=== PATIENT | female | born 1950 | race Caucasian/White ===

== ENCOUNTER 2016-03-03 09:51 | Inpatient (IN) | payer BC ==
[~2016-03-03] VITALS: Ht 167.6 cm; Wt 99.8 kg
[2016-03-03] MEDS ORDERED: LACTATED RINGERS 1,000 ML IV ONE (10:33)
[2016-03-03 10:42] LABS: BASOPHILS % (AUTO) 0 % (0-10); EOSINOPHILS % (AUTO) 0 % (0-10); LYMPHOCYTES # (AUTO) 1.4 X 10^3 (1.0-4.0); LYMPHOCYTES % (AUTO) 7 % (12-44); MEAN CORPUSCULAR HEMOGLOBIN 32 PG (25-34); MEAN CORPUSCULAR HGB CONC 35 G/DL (32-36); MEAN CORPUSCULAR VOLUME 92 FL (80-99); MEAN PLATELET VOLUME 9.7 FL (7.4-10.4); MONOCYTES # (AUTO) 3.8 X 10^3 (0.0-1.0); MONOCYTES % (AUTO) 19 % (0-12); NEUTROPHILS # (AUTO) 14.8 X 10^3 (1.8-7.8); NEUTROPHILS % (AUTO) 74 % (42-75); PLATELET COUNT 423 10^3/uL (130-400); RED BLOOD COUNT 4.56 10^6/uL (4.35-5.85); RED CELL DISTRIBUTION WIDTH 12.9 % (10.0-14.5); WHITE BLOOD COUNT 19.9 10^3/uL (4.3-11.0)
[2016-03-03] MEDS ORDERED: POTA99TA21 PO (10:42)
[2016-03-03] MEDS ORDERED: LISI-552 PO (10:42)
[2016-03-03] MEDS ORDERED: CIPR500T4 PO (10:42)
[2016-03-03] MEDS ORDERED: KRIL1CAP19 PO (10:42)
[2016-03-03] MEDS ORDERED: HYDR25TA4 PO (10:42)
[2016-03-03] MEDS ORDERED: ACETAMINOPHEN 500 MG TAB (TYLENOL) PO ONE (10:45)
[2016-03-03 10:51] LABS: BILIRUBIN,URINE NEGATIVE (NEGATIVE); KETONES,URINE NEGATIVE (NEGATIVE); LEUKOCYTE ESTERASE ,URINE 3+ (NEGATIVE); NITRITE,URINE POSITIVE (NEGATIVE); PH,URINE 6 (5-9); PROTEIN,URINE 3+ (NEGATIVE); UROBILINOGEN,URINE NORMAL (NORMAL)
[2016-03-03 11:05] LABS: ALBUMIN 4.4 G/DL (3.2-4.5); BILIRUBIN,TOTAL 0.4 MG/DL (0.1-1.0); CALCIUM 10.2 MG/DL (8.5-10.1); CREATININE SERUM 0.97 MG/DL (0.60-1.30); POTASSIUM 3.1 MMOL/L (3.6-5.0); TOTAL PROTEIN 8.3 G/DL (6.4-8.2)
[2016-03-03 11:09] LABS: WBC,URINE TNTC /HPF
--- NOTE | 2016-03-03 11:09 | ED General ---
General Chief Complaint: -Female Stated Complaint: JOINT PAIN/LOSS APPETITE/LETHARGIC Nursing Triage Note: PT CO OF UTI SX, FATIGUE, LOW GRADE FEVER, POOR APPETITE Nursing Sepsis Screen: Possible Sepsis Risk Source of Information: Patient History of Present Illness Time Seen by Provider: 10:34 Initial Comments MULTIPLE COMPLAINTS HAS HAD UTI SYMPTOMS SINCE 02/20/16--BURNING, URGENCY, FREQUENCY, BILATERAL FLANK PAIN HAS FELT BAD X 1 WEEK HAS HAD BODY ACHES, LEFT SIDED HEADACHE C/O DECREASED APPETITE, AND NO ENERGY HAS HAD SUBJECTIVE FEVER/SWEATS/CHILLS AT NIGHT FOR THE LAST FEW NIGHTS HAD NAUSEA AND VOMITING A COUPLE OF TIMES ON Friday02/26/16 NO ABDOMINAL PAIN SAW DR. FAIRCHILD ON FRIDAY FOR REGULAR SCHEDULED APPOINTMENT AND WAS TREATED WITH CIPRO FOR UTI STATES SHE FELT A LITTLE BIT BETTER AFTER STARTING ANTIBIOTICS, THEN STARTED FEELING WORSE THE LAST FEW DAYS HAS HISTORY OF CHRONIC UTI'S--WAS DOING BETTER ON MAINTENANCE REGIMEN PCP: DR. FAIRCHILD UROLOGY: DR. NOYOLA Allergies and Home Medications Allergies Coded Allergies: No Known Drug Allergies (Unverified , 05/28/10) Home Medications Ciprofloxacin HCl 500 Mg Tablet 500 MG PO BID (Reported) Hydrochlorothiazide 25 Mg Tablet 25 MG PO DAILY (Reported) Krill/Om-3/Dha/Epa/Phospho/Ast 1 Each Capsule 1 EACH PO DAILY (Reported) Lisinopril 20 Mg Tablet 20 MG PO DAILY (Reported) Potassium Gluconate 99 Mg Tablet 99 MG PO DAILY (Reported) Constitutional: no symptoms reported chills diaphoresis fever malaise weakness EENTM: no symptoms reported Respiratory: no symptoms reported Cardiovascular: no symptoms reported Gastrointestinal: see HPINo abdominal pain, diarrhea loss of appetite nausea vomiting Genitourinary: see HPI dysuria frequency pain Musculoskeletal: see HPI back pain Skin: no symptoms reported Psychiatric/Neurological: No Symptoms Reported HeadacheDenies Numbness, Denies Paresthesia, Denies Seizure, Denies Tremors, Denies Weakness Hematologic/Lymphatic: No Symptoms Reported Immunological/Allergic: no symptoms reported Past Yoyfrvr-Ajkoad-Pxoafm Hx Patient Social History Alcohol Use: Occasionally Uses Recreational Drug Use: No Smoking Status: Former Smoker (1 PPD--QUIT 10 YEARS AGO) Type Used: Cigarettes Recent Foreign Travel: No Contact w/Someone Who Travel: No Recent Infectious Disease Expo: No Recent Hopitalizations: No Physical Abuse Screen: No Sexual Abuse: No Seasonal Allergies Seasonal Allergies: No Surgeries HX Surgeries: Yes (BILATERAL CATARACTS) Surgeries: Appendectomy, Eye Surgery, Tubal Ligation Respiratory Hx Respiratory Disorders: No Cardiovascular Hx Cardiac Disorders: Yes Cardiac Disorders: Hypertension Neurological Hx Neurological Disorders: No Genitourinary Hx Genitourinary Disorders: Yes (FREQUENT UTI) Genitourinary Disorders: UTI-Chronic Gastrointestinal Hx Gastrointestinal Disorders: No Musculoskeletal Hx Musculoskeletal Disorders: Yes (CHRONIC GENERALIZED JOINT PAIN ) Musculoskeletal Disorders: Arthritis HEENT HX ENT Disorders: Yes HEENT Disorders: Cataract Cancer Hx Cancer: No Psychosocial Hx Psychiatric Problems: Yes Behavioral Health Disorders: Anxiety Integumentary HX Skin/Integumentary Disorder: No Blood Transfusions Hx Blood Disorders: No Physical Exam Vital Signs Vital Sign - Last 12Hours 03/03/16 10:35 Temp 100.5 Pulse 105 Resp 18 B/P 152/84 Pulse Ox 97 Capillary Refill : Less Than 3 Seconds General Appearance: No Apparent Distress WD/WN Other (TALKS NON-STOP AT LENGTH ) HEENT: PERRL/EOMI Normal ENT Inspection Neck: Full Range of Motion Normal Inspection Non Tender SuppleNo Lymphadenopathy (L), No Lymphadenopathy (R) Respiratory: Normal Breath Sounds No Accessory Muscle Use No Respiratory Distress Cardiovascular: Regular Rate, Rhythm No Edema No JVD No Murmur Normal Peripheral Pulses Gastrointestinal: Normal Bowel Sounds No Organomegaly No Pulsatile Mass Non Tender Soft Back: Normal Inspection No CVA Tenderness No Vertebral Tenderness Extremity: Normal Capillary Refill Normal Inspection Normal Range of Motion Non Tender No Calf Tenderness No Pedal Edema Neurologic/Psychiatric: Alert Oriented x3 No Motor/Sensory Deficits Normal Mood/Affect night cleaner II-XII Norm as Tested Skin: Normal Color Warm/Dry Progress/Results/Core Measures Results/Orders Lab Results Laboratory Tests Test 03/03/16 10:35 03/03/16 10:40 Range/Units Alanine Aminotransferase (ALT/SGPT) 28 0-55 U/L Albumin 4.4 3.2-4.5 G/DL Alkaline Phosphatase 115 40-136 U/L Amylase Level 85 25-125 U/L Anion Gap 18 H 5-14 MMOL/L Aspartate Amino Transf (AST/SGOT) 31 5-34 U/L BUN/Creatinine Ratio 11 Band Neutrophils 1 % Basophils # (Auto) 0.0 0.0-0.1 10^3/uL Basophils % (Manual) 0 % Basophils (%) (Auto) 0 0-10 % Blood Morphology Comment NORMAL Blood Urea Nitrogen 11 7-18 MG/DL Calcium Level 10.2 H 8.5-10.1 MG/DL Carbon Dioxide Level 21 21-32 MMOL/L Chloride Level 96 L 98-107 MMOL/L Creatinine 0.97 0.60-1.30 MG/DL Eosinophils # (Auto) 0.0 0.0-0.3 10^3/uL Eosinophils % (Manual) 0 % Eosinophils (%) (Auto) 0 0-10 % Estimat Glomerular Filtration Rate 58 Glucose Level 112 H 70-105 MG/DL Hematocrit 42 35-52 % Hemoglobin 14.7 11.5-16.0 G/DL Lipase 66 8-78 U/L Lymphocytes # (Auto) 1.4 1.0-4.0 X 10^3 Lymphocytes % (Manual) 12 % Lymphocytes (%) (Auto) 7 L 12-44 % Mean Corpuscular Hemoglobin 32 25-34 PG Mean Corpuscular Hemoglobin Concent 35 32-36 G/DL Mean Corpuscular Volume 92 80-99 FL Mean Platelet Volume 9.7 7.4-10.4 FL Monocytes # (Auto) 3.8 H 0.0-1.0 X 10^3 Monocytes % (Manual) 15 % Monocytes (%) (Auto) 19 H 0-12 % Neutrophils # (Auto) 14.8 H 1.8-7.8 X 10^3 Neutrophils % (Manual) 72 % Neutrophils (%) (Auto) 74 42-75 % Platelet Count 423 H 130-400 10^3/uL Potassium Level 3.1 L 3.6-5.0 MMOL/L Red Blood Count 4.56 4.35-5.85 10^6/uL Red Cell Distribution Width 12.9 10.0-14.5 % Sodium Level 135 135-145 MMOL/L Total Bilirubin 0.4 0.1-1.0 MG/DL Total Protein 8.3 H 6.4-8.2 G/DL Urine Bacteria LARGE H /HPF Urine Bilirubin NEGATIVE NEGATIVE Urine Casts NONE /LPF Urine Clarity VERY CLOUDY H Urine Color YELLOW Urine Crystals NONE /LPF Urine Culture Indicated YES Urine Glucose (UA) NEGATIVE NEGATIVE Urine Ketones NEGATIVE NEGATIVE Urine Leukocyte Esterase 3+ H NEGATIVE Urine Mucus NEGATIVE /LPF Urine Nitrite POSITIVE H NEGATIVE Urine Protein 3+ H NEGATIVE Urine RBC 5-10 H /HPF Urine RBC (Auto) 3+ H NEGATIVE Urine Specific [place] 1.010 L 1.016-1.022 Urine Urobilinogen NORMAL NORMAL MG/DL Urine WBC TNTC H /HPF Urine pH 6 5-9 White Blood Count 19.9 H 4.3-11.0 10^3/uL Lactic Acid Level 1.2 0.5-2.0 MMOL/L My Orders Orders-BRUNA QUIÑONES K DO Saline Lock/Iv-Start (03/03/16 10:33) Amylase (03/03/16 10:33) Cbc With Automated Diff (03/03/16 10:33) Comprehensive Metabolic Panel (03/03/16 10:33) Lactic Acid Analyzer (03/03/16 10:33) Lipase (03/03/16 10:33) Ua Culture If Indicated (03/03/16 10:33) Blood Culture (03/03/16 10:33) Saline Lock/Iv-Start (03/03/16 10:33) Lactated Ringers (Lr 1000 Ml Iv Solution (03/03/16 10:33) Acetaminophen Tablet (Tylenol Tablet) (03/03/16 10:45) Manual Differential (03/03/16 10:35) Urine Culture (03/03/16 10:35) Cefepime Injection (Maxipime Injection) (03/03/16 11:30) Medications Given in ED Current Medications Medications Dose Ordered Sig/Victoriano Route Start Time Stop Time Status Last Admin Dose Admin Acetaminophen 1,000 mg ONCE ONCE PO 03/03/16 10:45 03/03/16 10:46 DC 03/03/16 10:53 1,000 MG Lactated Ringer's 1,000 ml @ 0 mls/hr Q0M ONCE IV 03/03/16 10:33 03/03/16 10:35 DC 03/03/16 10:53 1,000 MLS/HR Vital Signs/I&O Vital Sign - Last 12Hours 03/03/16 10:35 Temp 100.5 Pulse 105 Resp 18 B/P 152/84 Pulse Ox 97 Blood Pressure Mean: 106 Departure Communication Progress Notes 1110--SPOKE WITH DR. LIZ, FR[employer] FOOD MANAGER FOR DR. FAIRCHILD. ACCEPTS PT FOR ADMIT. ORDERS NOTED FOR MAXIPIME Impression Impression: Primary Impression: Sepsis secondary to UTI Disposition: 09 ADMITTED INPATIENT Condition: Stable Decision to Admit Reason: Admit from ER (General) Decision to Admit/Date: Mar 03, 2016 Time/Decision to Admit Time: 11:10 Departure-Patient Inst. Referrals: HARPER FAIRHCILD MD (PCP/Family) Primary Care Physician BRUNA QUIÑONES DO Mar 03, 2016 11:09
[2016-03-03 11:15] LABS: BAND NEUTROPHILS 1 %; BASOPHILS % (MANUAL) 0 %; EOSINOPHILS % (MANUAL) 0 %; LYMPHOCYTES % (MANUAL) 12 %; NEUTROPHILS % (MANUAL) 72 %
[2016-03-03] MEDS ORDERED: CEFEPIME INJECTION 2,000 MG in NORMAL SALINE (BAXTER MINI) 50 ML IV ONE (11:30)
[2016-03-03] MEDS ORDERED: CATHETER FLUSH 10 ML SYR IV PRN (13:00)
[2016-03-03] MEDS: D5 1/2 NS 1000 ML IV SOLUTION 1,000 ML IV SCH ×2 (13:38→21:29)
[2016-03-03] MEDS: ACETAMINOPHEN 500 MG TAB (TYLENOL) PO PRN ×2 (13:40→19:30)
[2016-03-03 16:00] VITALS: BP 161/74
[2016-03-03] MEDS: CEFEPIME 2 GM/NS 50 ML IVPB IV SCH ×2 (19:29)
[2016-03-03 19:38] VITALS: BP 171/75
[2016-03-03] MEDS: IBUPROFEN 600 MG (MOTRIN) TAB PO PRN (22:25)
[2016-03-03 22:30] VITALS: BP 146/68
[2016-03-04 03:43] VITALS: BP 134/76
[2016-03-04] MEDS: D5 1/2 NS 1000 ML IV SOLUTION 1,000 ML IV SCH ×4 (04:51→21:46)
[2016-03-04 07:54] LABS: BASOPHILS % (AUTO) 0 % (0-10); EOSINOPHILS % (AUTO) 0 % (0-10); LYMPHOCYTES # (AUTO) 1.1 X 10^3 (1.0-4.0); LYMPHOCYTES % (AUTO) 4 % (12-44); MEAN CORPUSCULAR HEMOGLOBIN 33 PG (25-34); MEAN CORPUSCULAR HGB CONC 35 G/DL (32-36); MEAN CORPUSCULAR VOLUME 93 FL (80-99); MEAN PLATELET VOLUME 10.1 FL (7.4-10.4); MONOCYTES # (AUTO) 3.6 X 10^3 (0.0-1.0); MONOCYTES % (AUTO) 15 % (0-12); NEUTROPHILS # (AUTO) 20.2 X 10^3 (1.8-7.8); NEUTROPHILS % (AUTO) 81 % (42-75); PLATELET COUNT 386 10^3/uL (130-400); RED BLOOD COUNT 4.19 10^6/uL (4.35-5.85); RED CELL DISTRIBUTION WIDTH 12.9 % (10.0-14.5); WHITE BLOOD COUNT 24.8 10^3/uL (4.3-11.0)
--- NOTE | 2016-03-04 08:10 | History & Physicial ---
History of Present Illness History of Present Illness Reason for visit/HPI 65-year-old female presents to the emergency department on March 03, 2016 with history of burning and frequency of urination. She does also admit that her flank area bilaterally has been bothering her. She was seen in the office approximately one week ago and started on Cipro for urinary tract infection. At that time patient did not have any fever but overall discomfort in the bladder area. Currently she admits to decreased appetite, no energy, fevers, sweats and chills at night. In the past she has been on doxycycline as a preventative measure for urinary tract infections. She has seen urology in the past as well. She has had cystoscopies. Date of Admission Mar 03, 2016 at 11:10 I consulted on this patient on 03/04/16 08:06 Attending Physician Harper Fairchild MD Admitting Physician Harper Fairchild MD Consult Allergies and Home Medications Allergies Coded Allergies: No Known Drug Allergies (Unverified , 05/28/10) Home Medications Ciprofloxacin HCl 500 Mg Tablet 500 MG PO BID (Reported) Hydrochlorothiazide 25 Mg Tablet 25 MG PO DAILY (Reported) Krill/Om-3/Dha/Epa/Phospho/Ast 1 Each Capsule 1 EACH PO DAILY (Reported) Lisinopril 20 Mg Tablet 20 MG PO DAILY (Reported) Potassium Gluconate 99 Mg Tablet 99 MG PO DAILY (Reported) Past Pdantzi-Gtundm-Aatpui Hx Patient Social History Marrital Status: Alcohol Use: Occasionally Uses Recreational Drug Use: No Smoking Status: Former Smoker Type Used: Cigarettes Physical Abuse Screen: No Sexual Abuse: No Recent Foreign Travel: No Contact w/other who traveled: No Recent Hopitalizations: No Recent Infectious Disease Expo: No Immunizations Up To Date Date of Influenza Vaccine: Dec 20, 2015 Seasonal Allergies Seasonal Allergies: No Surgeries HX Surgeries: Yes (BILATERAL CATARACTS) Surgeries: Appendectomy, Eye Surgery, Tubal Ligation Respiratory Hx Respiratory Disorders: No Cardiovascular Hx Cardiovascular Disorders: Yes Cardiac Disorders: Hypertension Neurological Hx Neurological Disorders: No Reproductive System Hx Reproductive Disorders: No Genitourinary Hx Genitourinary Disorders: Yes (FREQUENT UTI) Genitourinary Disorders: UTI-Chronic Gastrointestinal Hx Gastrointestinal Disorders: No Musculoskeletal Hx Musculoskeletal Disorders: Yes (CHRONIC GENERALIZED JOINT PAIN ) Musculoskeletal Disorders: Arthritis Endocrine Hx Endocrine Disorders: No HEENT HX ENT Disorders: Yes HEENT Disorders: Cataract Cancer Hx Cancer: No Psychosocial Hx Psychiatric Problems: Yes Behavioral Health Disorders: Anxiety Integumentary HX Skin/Integumentary Disorder: No Blood Transfusions Hx Blood Disorders: No Adverse Reaction to a Blood Tr: No Constitutional: see HPI Physical Exam Vital Signs Vital Sign - Last 12Hours 03/03/16 10:35 Temp 100.5 Pulse 105 Resp 18 B/P 152/84 Pulse Ox 97 Capillary Refill : Less Than 3 Seconds General Appearance: Anxious Eyes: Bilateral Eye Normal Inspection HEENT: Normal ENT Inspection Neck: Supple Respiratory: Lungs Clear Cardiovascular: Regular Rate, Rhythm Gastrointestinal: Soft Back: CVA Tenderness (L) CVA Tenderness (R) Skin: Normal Color Assessment/Plan Assessment and Plan 1. Urinary tract infection -Patient started on Maxipime -Urine cultures pending 2. Risk for sepsis -Monitor CBC and sepsis parameters -Blood cultures pending Admission Diagnosis 1. Urinary tract infection 2. Risk for sepsis Clinical Quality Measures DVT/VTE Risk/Contraindication: Risk Factor Score Per Nursin RFS Level Per Nursing on Admit: 2=Moderate HARPER FAIRCHILD MD Mar 04, 2016 08:10
[2016-03-04] MEDS: CEFEPIME 2 GM/NS 50 ML IVPB IV SCH ×2 (08:11)
[2016-03-04 08:12] LABS: ALANINE AMINOTRANSFERASE 24 U/L (0-55); ALBUMIN 3.8 G/DL (3.2-4.5); ANION GAP 12 MMOL/L (5-14); ASPARTATE AMINO TRANSFERASE 25 U/L (5-34); BILIRUBIN,TOTAL 0.5 MG/DL (0.1-1.0); BLOOD UREA NITROGEN 7 MG/DL (7-18); BUN/CREATININE RATIO 9; CALCIUM 9.3 MG/DL (8.5-10.1); CARBON DIOXIDE 22 MMOL/L (21-32); CHLORIDE 102 MMOL/L (98-107); CREATININE SERUM 0.78 MG/DL (0.60-1.30); GFR ESTIMATED > 60; GLUCOSE 123 MG/DL (70-105); POTASSIUM 2.9 MMOL/L (3.6-5.0); SODIUM 136 MMOL/L (135-145); TOTAL PROTEIN 7.4 G/DL (6.4-8.2)
[2016-03-04] MEDS: IBUPROFEN 600 MG (MOTRIN) TAB PO PRN ×2 (08:12→15:15)
[2016-03-04] MEDS ORDERED: lisINopril 20 MG (ZESTRIL) TAB PO NR (08:25)
[2016-03-04 08:30] VITALS: BP 140/78
[2016-03-04 12:13] VITALS: BP 158/68
[2016-03-04] MEDS: ACETAMINOPHEN 500 MG TAB (TYLENOL) PO PRN (12:58)
[2016-03-04] MEDS: MEROPENEM 500 MG in NORMAL SALINE (BAXTER MINI) 100 ML IV SCH ×2 (15:39→23:47)
[2016-03-04 16:00] VITALS: BP 120/57
[2016-03-04 20:00] VITALS: BP 126/69
[2016-03-04] MEDS ORDERED: MEROPENEM 1000 MG (MERREM) VIAL IV ONE (23:36)
[2016-03-04] MEDS ORDERED: NORMAL SALINE (BAXTER MINI) 100 ML IV ONE (23:36)
[2016-03-04] MEDS ORDERED: MEROPENEM 500 MG VIAL (MERREM) IV ONE (23:39)
[2016-03-04 23:51] VITALS: BP 138/90
[2016-03-05] MEDS: ACETAMINOPHEN 500 MG TAB (TYLENOL) PO PRN (02:17)
[2016-03-05 04:00] VITALS: BP 147/70
[2016-03-05] MEDS ORDERED: MEROPENEM 500 MG VIAL (MERREM) IV ONE ×2 (05:00→23:27)
[2016-03-05] MEDS ORDERED: NORMAL SALINE (BAXTER MINI) 100 ML IV ONE ×2 (05:00→23:27)
[2016-03-05] MEDS: D5 1/2 NS 1000 ML IV SOLUTION 1,000 ML IV SCH (05:03)
[2016-03-05] MEDS: MEROPENEM 500 MG in NORMAL SALINE (BAXTER MINI) 100 ML IV SCH ×4 (05:11→23:39)
[2016-03-05] MEDS: KCL 10 MEQ TAB (MICRO K) PO SCH (06:04)
[2016-03-05 06:27] LABS: BASOPHILS % (AUTO) 0 % (0-10); EOSINOPHILS # (AUTO) 0.1 10^3/uL (0.0-0.3); EOSINOPHILS % (AUTO) 1 % (0-10); LYMPHOCYTES # (AUTO) 1.6 X 10^3 (1.0-4.0); LYMPHOCYTES % (AUTO) 10 % (12-44); MEAN CORPUSCULAR HEMOGLOBIN 33 PG (25-34); MEAN CORPUSCULAR HGB CONC 35 G/DL (32-36); MEAN CORPUSCULAR VOLUME 94 FL (80-99); MEAN PLATELET VOLUME 10.1 FL (7.4-10.4); MONOCYTES # (AUTO) 3.1 X 10^3 (0.0-1.0); MONOCYTES % (AUTO) 19 % (0-12); NEUTROPHILS # (AUTO) 11.5 X 10^3 (1.8-7.8); NEUTROPHILS % (AUTO) 71 % (42-75); PLATELET COUNT 351 10^3/uL (130-400); RED BLOOD COUNT 3.58 10^6/uL (4.35-5.85); RED CELL DISTRIBUTION WIDTH 13.2 % (10.0-14.5); WHITE BLOOD COUNT 16.3 10^3/uL (4.3-11.0)
[2016-03-05 06:59] LABS: ANION GAP 11 MMOL/L (5-14); BLOOD UREA NITROGEN 9 MG/DL (7-18); BUN/CREATININE RATIO 13; CALCIUM 8.6 MG/DL (8.5-10.1); CARBON DIOXIDE 19 MMOL/L (21-32); CHLORIDE 111 MMOL/L (98-107); CREATININE SERUM 0.71 MG/DL (0.60-1.30); GFR ESTIMATED > 60; GLUCOSE 98 MG/DL (70-105); POTASSIUM 2.8 MMOL/L (3.6-5.0); SODIUM 141 MMOL/L (135-145)
--- NOTE | 2016-03-05 07:32 | Progress Note (SOAP) ---
Subjective Subjective/Events-last exam Overall patient reports feeling better. The discomfort on her right flank area is still present but has decreased. She also reports her joints are bothering her. Objective Exam Vital Signs Date Time Temp Pulse Resp B/P Pulse Ox O2 Delivery O2 Flow Rate FiO2 03/05/16 05:15 98.1 03/05/16 04:00 99.2 89 20 147/70 93 Room Air 03/05/16 03:15 99.1 03/05/16 02:17 101.4 03/04/16 23:51 98.9 87 20 138/90 93 Room Air 03/04/16 20:00 98.1 88 18 126/69 93 Room Air 03/04/16 19:30 Room Air 03/04/16 16:00 100.7 78 18 120/57 93 Room Air 03/04/16 15:00 101.7 03/04/16 14:00 100.7 03/04/16 12:58 100.5 03/04/16 12:13 98.7 86 18 158/68 95 Room Air 03/04/16 11:00 99.4 03/04/16 09:30 100.7 03/04/16 08:30 101.2 80 18 140/78 96 Room Air I & O 03/05/16 07:00 Intake Total 6770 ml Output Total 4500 ml Balance 2270 ml Capillary Refill : Less Than 3 Seconds General Appearance: No Apparent Distress Neck: Supple Respiratory: Lungs Clear Cardiovascular: Regular Rate, Rhythm Gastrointestinal: soft Other comments Slight R sided CVA tenderness Results Lab Laboratory Tests 03/05/16 05:54: Anion Gap 11, BUN/Creatinine Ratio 13, Basophils # (Auto) 0.0, Basophils (%) ( Auto) 0, Blood Urea Nitrogen 9, Calcium Level 8.6, Carbon Dioxide Level 19L, Chloride Level 111H, Creatinine 0.71, Eosinophils # (Auto) 0.1, Eosinophils (%) (Auto) 1, Estimat Glomerular Filtration Rate > 60, Glucose Level 98, Hematocrit 34L, Hemoglobin 11.7, Lymphocytes # (Auto) 1.6, Lymphocytes (%) (Auto) 10L, Mean Corpuscular Hemoglobin 33, Mean Corpuscular Hemoglobin Concent 35, Mean Corpuscular Volume 94, Mean Platelet Volume 10.1, Monocytes # (Auto) 3.1H, Monocytes (%) (Auto) 19H, Neutrophils # (Auto) 11.5H, Neutrophils (%) (Auto) 71 , Platelet Count 351, Potassium Level 2.8L, Red Blood Count 3.58L, Red Cell Distribution Width 13.2, Sodium Level 141, White Blood Count 16.3H Microbiology 03/03/16 Blood Culture - Preliminary, Resulted Escherichia Coli 03/03/16 Urine Culture - Preliminary, Resulted Escherichia Coli Assessment/Plan Assessment/Plan Assess & Plan/Chief Complaint 1. Urinary tract infection -Patient started on Maxipime -Urine cultures pending 03/05 E. coli resistant Antibiotic switched yesterday to Meropenem 2. Risk for sepsis -Monitor CBC and sepsis parameters -Blood cultures pending 03/05 noted E. coli from blood 3. Hypokalemia replace Diagnosis/Problems: Clinical Quality Measures DVT/VTE Risk/Contraindication: Risk Factor Score Per Nursin RFS Level Per Nursing on Admit: 2=Moderate HARPER FAIRCHILD MD Mar 05, 2016 07:32
[2016-03-05 08:15] VITALS: BP 150/99
[2016-03-05] MEDS: D5 1/2 NS W/KCL 20 MEQ/L 1,000 ML IV SCH ×4 (08:48→23:39)
--- NOTE | 2016-03-05 08:59 | Diagnostic Imaging Report ---
PROCEDURE: CT urinary tract, rule out kidney stone. TECHNIQUE: Multiple contiguous axial images were obtained through the abdomen and pelvis without the use of intravenous contrast. INDICATION: Urinary tract infection. Flank pain. Evaluate for renal collecting system calculi. COMPARISON: None. FINDINGS: Included views of the lung bases are unremarkable. CT abdomen: There is abnormal perirenal and periureteral fat stranding, right greater than left. No focal renal lesions are seen on this noncontrast exam. No renal or ureteral calculi are identified. Additionally, there is no hydroureteronephrosis or other evidence of obstruction. The spleen, adrenal glands, pancreas, and liver have an unremarkable noncontrast CT appearance. Small bowel loops are nondistended. Normal appendix cannot be adequately identified, but there is no pericecal inflammation. There is colonic diverticulosis, but no CT evidence of acute diverticulitis. There is no loculated fluid collection, free fluid or free air within the abdomen. No abnormal mesenteric or retroperitoneal adenopathy is seen. Bony structures show age-related degenerative changes. No acute appearing bony abnormalities are identified. CT pelvis: Urinary bladder is unopacified. No calculi are seen within the urinary bladder. There is no loculated fluid collection, free fluid or free air within the pelvis. No abnormal lymph nodes are seen. Bony structures show no acute abnormalities. IMPRESSION: 1. Abnormal bilateral perirenal and periureteral fat stranding, right greater than left. Given history of urinary tract infection and absence of renal or ureteral calculi, this does raise concern for bilateral pyelonephritis. Evaluation, however, is suboptimal given lack of IV contrast. Clinical correlation is recommended. If further evaluation is desired, postcontrast exam is recommended. 2. Colonic diverticulosis, but no CT evidence of acute diverticulitis. Dictated by: Dictated on workstation # [id number]
--- NOTE | 2016-03-05 10:06 | CONSULTATION REPORT ---
DATE OF CONSULTATION: 03/05/2016 ATTENDING PHYSICIAN: Dr. Browning SUMMARY: After reviewing the patient's record at the hospital and the office, interviewing her and examining her, this is a 65-year-old white lady known to me for several years because of recurrent urinary tract infection, a 2+ cystorectocele, mixed incontinence, ISD overactive bladder. She has been doing fairly decent on bladder training, Kegel exercise Premarin vaginal cream once or twice a week 0.5 grams, Proloprim 100 mg daily. Back in January 2013 I did urodynamic studies and examination she did have a positive Q-tip test and a positive Dominic test; her cystoscopy was negative and she had the above mentioned findings. She is being admitted by Dr. Browning - Dr. Petersen for a UTI and put on Cipro. She is feeling and doing better. I ordered a noncontrast CT scan of the abdomen and pelvis today that showed no stones, some evidence of bilateral pyelo which goes along with her clinical picture. PHYSICAL EXAMINATION: VITAL SIGNS: Per chart. GENERAL: Well-nourished, well-developed, in no acute distress. HEAD: Normocephalic. ENT: Unremarkable. NECK: Supple. CHEST: Clear. HEART: Regular rate and rhythm. ABDOMEN: Soft. There is no CVA tenderness. EXTREMITIES: Lower extremity no edema. NEUROLOGICAL EXAM: Grossly intact. IMPRESSION: 1. Recurrent UTI with possible pyelonephritis, improving. 2. Vaginal prolapse with mixed incontinence. 3. ISD. 4. Overactive bladder. RECOMMENDATION: Continue present management for at least 10 days of antibiotics. I'll see her back in the office in 2 weeks. I told her that we need probably seriously consider LAVH and BSO, AP repair and a sling, like I suggested to her back in 2012. She seems to be more accepting it. I will see her back in my office in 2 weeks. At that point I will refer her to the treating plant operator of her choice for the hysterectomy part and proceed with surgery. At that time we will explain again the procedure to her. Job ID: [id number] Dictated Date: 03/05/2016 09:46:58 Medical Claims Processor Date: 03/05/2016 09:54:25/radah LIAO
[2016-03-05] MEDS ORDERED: POTA10TA10 PO (11:25)
[2016-03-05] MEDS ORDERED: SIMV20TA3 PO (11:25)
[2016-03-05] MEDS ORDERED: AMLO10TA2 PO (11:25)
[2016-03-05] MEDS ORDERED: VNL75T PO (11:25)
[2016-03-05] MEDS ORDERED: TRIM100T PO (11:25)
[2016-03-05] MEDS ORDERED: EST30C VG (11:25)
[2016-03-05] MEDS ORDERED: DOXY100C2 PO (11:28)
[2016-03-05] MEDS: IBUPROFEN 600 MG (MOTRIN) TAB PO PRN (13:31)
--- NOTE | 2016-03-05 14:33 | Physician Query-General Query ---
Physician Query-General Query to Physician: Preliminary blood culture is growing e. coli. T100.5>104, P105, R18, WBC 19.9, Band 1 Lactic acid 1.2. Please clarify whether or not the patient has sepsis after study. PHYSICIAN RESPONSE: Based on the clinical findings in the record, please respond to the query above on this document as an addendum. Possible, probable, or questionable diagnosis can be coded for INPATIENTS ONLY. Physician Response: Physician Response Yes she qualifies If you have questions please contact: Creative Art Therapist: Kari Ext: [phone] Thank you for your time and cooperation. Clinical Treasury Consultant/Creative Art Therapist This is a permanent part of the medical record KARI LARA Mar 05, 2016 14:33 HARPER FAIRCHILD MD Mar 06, 2016 07:11
[2016-03-05 16:10] VITALS: BP 145/73
[2016-03-05 19:05] VITALS: BP 145/64
[2016-03-06] VITALS: BP 152/77
[2016-03-06] MEDS ORDERED: NORMAL SALINE (BAXTER MINI) 100 ML IV ONE (04:37)
[2016-03-06] MEDS ORDERED: MEROPENEM 500 MG VIAL (MERREM) IV ONE (04:37)
[2016-03-06] MEDS: MEROPENEM 500 MG in NORMAL SALINE (BAXTER MINI) 100 ML IV SCH ×3 (05:02→17:36)
[2016-03-06] MEDS: KCL 10 MEQ TAB (MICRO K) PO SCH (06:00)
[2016-03-06 06:01] LABS: BASOPHILS % (AUTO) 0 % (0-10); EOSINOPHILS # (AUTO) 0.1 10^3/uL (0.0-0.3); EOSINOPHILS % (AUTO) 1 % (0-10); LYMPHOCYTES # (AUTO) 1.7 X 10^3 (1.0-4.0); LYMPHOCYTES % (AUTO) 13 % (12-44); MEAN CORPUSCULAR HEMOGLOBIN 33 PG (25-34); MEAN CORPUSCULAR HGB CONC 34 G/DL (32-36); MEAN CORPUSCULAR VOLUME 95 FL (80-99); MEAN PLATELET VOLUME 9.7 FL (7.4-10.4); MONOCYTES # (AUTO) 1.6 X 10^3 (0.0-1.0); MONOCYTES % (AUTO) 13 % (0-12); NEUTROPHILS # (AUTO) 9.2 X 10^3 (1.8-7.8); NEUTROPHILS % (AUTO) 73 % (42-75); PLATELET COUNT 444 10^3/uL (130-400); RED BLOOD COUNT 3.51 10^6/uL (4.35-5.85); RED CELL DISTRIBUTION WIDTH 13.2 % (10.0-14.5); WHITE BLOOD COUNT 12.6 10^3/uL (4.3-11.0)
[2016-03-06 06:14] LABS: ANION GAP 9 MMOL/L (5-14); BLOOD UREA NITROGEN 6 MG/DL (7-18); BUN/CREATININE RATIO 9; CARBON DIOXIDE 23 MMOL/L (21-32); CHLORIDE 109 MMOL/L (98-107); CREATININE SERUM 0.68 MG/DL (0.60-1.30); GFR ESTIMATED > 60; GLUCOSE 116 MG/DL (70-105); POTASSIUM 3.2 MMOL/L (3.6-5.0); SODIUM 141 MMOL/L (135-145)
--- NOTE | 2016-03-06 07:21 | Progress Note (SOAP) ---
Subjective Subjective/Events-last exam Patient continues to feel better. She does report the back discomfort is easing. Objective Exam Vital Signs Date Time Temp Pulse Resp B/P Pulse Ox O2 Delivery O2 Flow Rate FiO2 03/06/16 00:00 98.7 76 20 152/77 93 Room Air 03/05/16 20:10 Room Air 03/05/16 19:05 97.9 67 22 145/64 94 Room Air 03/05/16 16:10 99.5 75 18 145/73 95 Room Air 03/05/16 14:08 100.8 03/05/16 13:00 101.7 03/05/16 12:00 99.7 03/05/16 08:15 99.3 78 18 150/99 93 Room Air I & O 03/06/16 07:00 Intake Total 6320 ml Output Total 3625 ml Balance 2695 ml Capillary Refill : Less Than 3 Seconds General Appearance: No Apparent Distress Respiratory: Lungs Clear Cardiovascular: Regular Rate, Rhythm Results Lab Laboratory Tests 03/06/16 05:45: Anion Gap 9, BUN/Creatinine Ratio 9, Basophils # (Auto) 0.0, Basophils (%) (Auto ) 0, Blood Urea Nitrogen 6L, Calcium Level 9.0, Carbon Dioxide Level 23, Chloride Level 109H, Creatinine 0.68, Eosinophils # (Auto) 0.1, Eosinophils (%) (Auto) 1, Estimat Glomerular Filtration Rate > 60, Glucose Level 116H, Hematocrit 33L, Hemoglobin 11.4L, Lymphocytes # (Auto) 1.7, Lymphocytes (%) ( Auto) 13, Mean Corpuscular Hemoglobin 33, Mean Corpuscular Hemoglobin Concent 34 , Mean Corpuscular Volume 95, Mean Platelet Volume 9.7, Monocytes # (Auto) 1.6H , Monocytes (%) (Auto) 13H, Neutrophils # (Auto) 9.2H, Neutrophils (%) (Auto) 73 , Platelet Count 444H, Potassium Level 3.2L, Red Blood Count 3.51L, Red Cell Distribution Width 13.2, Sodium Level 141, White Blood Count 12.6H Microbiology 03/03/16 Blood Culture - Preliminary, Resulted Escherichia Coli 03/03/16 Urine Culture - Final, Complete Escherichia Coli Assessment/Plan Assessment/Plan Assess & Plan/Chief Complaint 1. Urinary tract infection -Patient started on Maxipime -Urine cultures pending 03/05 E. coli resistant Antibiotic switched yesterday to Meropenem 03/06 day #3 meropenem 2. Urosepsis -Monitor CBC and sepsis parameters -Blood cultures pending 03/05 noted E. coli from blood 3. Hypokalemia replace Diagnosis/Problems: Clinical Quality Measures DVT/VTE Risk/Contraindication: Risk Factor Score Per Nursin RFS Level Per Nursing on Admit: 2=Moderate HARPER FAIRCHILD MD Mar 06, 2016 07:21
[2016-03-06] MEDS: D5 1/2 NS W/KCL 20 MEQ/L 1,000 ML IV SCH ×3 (07:39→22:33)
[2016-03-06 08:41] VITALS: BP 179/86
[2016-03-06] MEDS: VENlafaxine 75 MG (EFFEXOR) TAB PO SCH ×2 (08:48→20:01)
[2016-03-06] MEDS: amLODIPine 10 MG (NORVASC) TAB PO SCH (08:48)
--- NOTE | 2016-03-06 11:43 | Progress Note-Urology ---
Progress Note-Urology Progress Notes/Assess & Plan Progress/Assessment & Plan doing and feeling better, still PVR, last one 700cc Final Diagnosis UTI, Prolapse, Retention ELIEZRE NOYOLA MD Mar 06, 2016 11:43
[2016-03-06] MEDS: IBUPROFEN 600 MG (MOTRIN) TAB PO PRN ×2 (11:51→22:36)
[2016-03-06 16:00] VITALS: BP 173/83
[2016-03-06] MEDS: SIMvastatin 20 MG (ZOCOR) TAB PO SCH (20:01)
[2016-03-07] VITALS: BP 157/84
[2016-03-07] MEDS: MEROPENEM 500 MG in NORMAL SALINE (BAXTER MINI) 100 ML IV SCH ×4 (00:04→17:06)
[2016-03-07] MEDS: KCL 10 MEQ TAB (MICRO K) PO SCH (06:02)
[2016-03-07 06:07] LABS: BASOPHILS % (AUTO) 0 % (0-10); EOSINOPHILS # (AUTO) 0.1 10^3/uL (0.0-0.3); EOSINOPHILS % (AUTO) 1 % (0-10); LYMPHOCYTES % (AUTO) 22 % (12-44); MEAN CORPUSCULAR HEMOGLOBIN 32 PG (25-34); MEAN CORPUSCULAR HGB CONC 33 G/DL (32-36); MEAN CORPUSCULAR VOLUME 95 FL (80-99); MEAN PLATELET VOLUME 9.6 FL (7.4-10.4); MONOCYTES # (AUTO) 1.6 X 10^3 (0.0-1.0); MONOCYTES % (AUTO) 18 % (0-12); NEUTROPHILS # (AUTO) 5.4 X 10^3 (1.8-7.8); NEUTROPHILS % (AUTO) 59 % (42-75); PLATELET COUNT 495 10^3/uL (130-400); RED CELL DISTRIBUTION WIDTH 13.1 % (10.0-14.5); WHITE BLOOD COUNT 9.1 10^3/uL (4.3-11.0)
[2016-03-07 06:50] LABS: ANION GAP 10 MMOL/L (5-14); BLOOD UREA NITROGEN 5 MG/DL (7-18); BUN/CREATININE RATIO 8; CARBON DIOXIDE 23 MMOL/L (21-32); CHLORIDE 106 MMOL/L (98-107); CREATININE SERUM 0.61 MG/DL (0.60-1.30); GFR ESTIMATED > 60; GLUCOSE 104 MG/DL (70-105); POTASSIUM 3.7 MMOL/L (3.6-5.0); SODIUM 139 MMOL/L (135-145)
--- NOTE | 2016-03-07 07:03 | Progress Note (SOAP) ---
Subjective Subjective/Events-last exam Patient up in chair this am. No back pain. Objective Exam Vital Signs Date Time Temp Pulse Resp B/P Pulse Ox O2 Delivery O2 Flow Rate FiO2 03/07/16 00:00 98.4 79 18 157/84 94 Room Air 03/06/16 16:00 97.3 82 20 173/83 95 Room Air 03/06/16 08:41 99.2 80 18 179/86 96 Room Air I & O 03/07/16 07:00 Intake Total 6170 ml Output Total 4025 ml Balance 2145 ml Capillary Refill : Less Than 3 Seconds General Appearance: No Apparent Distress Respiratory: Normal Breath Sounds Cardiovascular: Regular Rate, Rhythm Other comments Back: no CVA tenderness Results Lab Laboratory Tests 03/07/16 05:47: Basophils # (Auto) 0.0, Basophils (%) (Auto) 0, Eosinophils # (Auto) 0.1, Eosinophils (%) (Auto) 1, Hematocrit 35, Hemoglobin 11.7, Lymphocytes # (Auto) 2.0, Lymphocytes (%) (Auto) 22, Mean Corpuscular Hemoglobin 32, Mean Corpuscular Hemoglobin Concent 33, Mean Corpuscular Volume 95, Mean Platelet Volume 9.6, Monocytes # (Auto) 1.6H, Monocytes (%) (Auto) 18H, Neutrophils # ( Auto) 5.4, Neutrophils (%) (Auto) 59, Platelet Count 495H, Red Blood Count 3.70L , Red Cell Distribution Width 13.1, White Blood Count 9.1 Microbiology 03/03/16 Blood Culture - Preliminary, Resulted Escherichia Coli 03/03/16 Urine Culture - Final, Complete Escherichia Coli Assessment/Plan Assessment/Plan Assess & Plan/Chief Complaint 1. Urinary tract infection -Patient started on Maxipime -Urine cultures pending 03/05 E. coli resistant Antibiotic switched yesterday to Meropenem 03/06 day #3 meropenem 2. Urosepsis -Monitor CBC and sepsis parameters -Blood cultures pending 03/05 noted E. coli from blood 03/07 WBC is now in normal range -continue with meropenem day #4 3. Hypokalemia replace Diagnosis/Problems: Clinical Quality Measures DVT/VTE Risk/Contraindication: Risk Factor Score Per Nursin RFS Level Per Nursing on Admit: 2=Moderate HARPER FAIRCHILD MD Mar 07, 2016 07:03
[2016-03-07] MEDS: D5 1/2 NS W/KCL 20 MEQ/L 1,000 ML IV SCH ×3 (07:30→17:06)
[2016-03-07 08:00] VITALS: BP 160/86
[2016-03-07] MEDS: VENlafaxine 75 MG (EFFEXOR) TAB PO SCH ×2 (08:51→20:53)
[2016-03-07] MEDS: amLODIPine 10 MG (NORVASC) TAB PO SCH (08:51)
[2016-03-07 09:09] VITALS: BP 160/86
--- NOTE | 2016-03-07 11:04 | Progress Note-Urology ---
Progress Note-Urology Progress Notes/Assess & Plan Progress/Assessment & Plan still on and off retention with need for cath. plan to have [facility] visit her once a day for PVR cath Final Diagnosis urine retention and recurrent UTIS ELIEZER NOYOLA MD Mar 07, 2016 11:04 am
[2016-03-07 16:00] VITALS: BP 165/83
[2016-03-07] MEDS: IBUPROFEN 600 MG (MOTRIN) TAB PO PRN (17:06)
[2016-03-07] MEDS: SIMvastatin 20 MG (ZOCOR) TAB PO SCH (20:53)
[2016-03-08] VITALS: BP 151/88
[2016-03-08] MEDS: MEROPENEM 500 MG in NORMAL SALINE (BAXTER MINI) 100 ML IV SCH ×3 (00:47→12:12)
[2016-03-08] MEDS: D5 1/2 NS W/KCL 20 MEQ/L 1,000 ML IV SCH ×2 (04:09→13:27)
[2016-03-08] MEDS: KCL 10 MEQ TAB (MICRO K) PO SCH (06:00)
--- NOTE | 2016-03-08 07:33 | Discharge Summary ---
Diagnosis/Chief Complaint Date of Admission Mar 03, 2016 at 11:10 Date of Discharge March 03, 2016 Discharge Date: Mar 08, 2016 Admission Diagnosis Admission Diagnosis 1. Urinary tract infection 2. Risk for sepsis Discharge Diagnosis 1. Urinary tract infection 2. Urosepsis 3. Hypokalemia Reason Hospital Visit 65-year-old female presents to the emergency department on March 03, 2016 with history of burning and frequency of urination. She does also admit that her flank area bilaterally has been bothering her. She was seen in the office approximately one week ago and started on Cipro for urinary tract infection. At that time patient did not have any fever but overall discomfort in the bladder area. Currently she admits to decreased appetite, no energy, fevers, sweats and chills at night. In the past she has been on doxycycline as a preventative measure for urinary tract infections. She has seen urology in the past as well. She has had cystoscopies. Discharge Summary Hospital Course Hospital Course Patient was admitted on March 03, 2016 with pyelonephritis/sepsis. She was initially placed on cefepime 1 g intravenously every 8 hours. Her CBC as well as chemistries were followed during the course of her stay. She was noted initially to have elevated white blood cell count and by day 2 was found to have gram-negative yenifer growing from both blood and urine. She was ultimately found to have a resistant extended spectrum beta-lactamase Escherichia coli. At this point she was switched to meropenem 1 g every 8 hour period she was continued on meropenem during the course of her hospital stay until day of release. It was noted on her urine culture that Macrobid was also sensitive to the resistant Escherichia coli. She also had during the course of her hospital stay low potassium which was treated with replacement both oral as well as intravenous. During the course of hospital stay the back pain had markedly improved and on dismissal was completely gone. Urology also visited with patient regarding her residual urine and patient had post-catheter voids. Recommendations were for daily home health visits for post void residual catheterizations. Patient will also follow up in 2 weeks with Urology to arrange for hysterectomy with gynecology to follow with bladder repair. Patient had all questions answered in the morning of March 08, 2016 and she will follow up in my office March 12 or for urine analysis. Labs Laboratory Tests 03/06/16 05:45: Blood Urea Nitrogen 6L, Chloride Level 109H, Glucose Level 116H, Hematocrit 33L , Hemoglobin 11.4L, Monocytes # (Auto) 1.6H, Monocytes (%) (Auto) 13H, Neutrophils # (Auto) 9.2H, Platelet Count 444H, Potassium Level 3.2L, Red Blood Count 3.51L, White Blood Count 12.6H 03/07/16 05:47: Blood Urea Nitrogen 5L, Monocytes # (Auto) 1.6H, Monocytes (%) (Auto) 18H, Platelet Count 495H, Red Blood Count 3.70L Procedures None. Discharge Physical Examination Allergies: Coded Allergies: No Known Drug Allergies (Unverified , 05/28/10) Vitals & I&Os Vital Signs Date Time Temp Pulse Resp B/P Pulse Ox O2 Delivery O2 Flow Rate FiO2 03/08/16 00:00 99.2 67 18 151/88 94 Room Air General Appearance: No Acute Distress Respiratory: Clear to Auscultation Cardiovascular: Regular Rate Abdominal: Soft Discharge Home Medications Reviewed and agree with Discharge Medication list on patient's Discharge Instruction sheet Instructions to Patient/Family Please see electonic discharge instructions given to patient. Clinical Quality Measures DVT/VTE Risk/Contraindication: Risk Factor Score Per Nursin RFS Level Per Nursing on Admit: 2=Moderate HARPER FAIRCHILD MD Mar 08, 2016 07:33
[2016-03-08] MEDS ORDERED: NITR100C PO (07:35)
--- NOTE | 2016-03-08 07:38 | Discharge Inst-Simple/Standard ---
Discharge Inst-Standard Discharge Medications New, Converted or Re-Newed RX: Transmitted to Pharmacy ([facility]) Patient Instructions/Follow Up Plan of Care/Instructions/FU: FU with Dr Fairchild on 03/12 or 03/13/2016. FU with Dr Adame in 2 weeks as requested. Home health to visit daily for post void residual cath. Activity as Tolerated: Yes (as tolerated) Discharge Diet: Low Fat/Low Cholesterol Return to The Hospital For: Febrile or worsening lower abdominal pain HARPER FAIRCHILD MD Mar 08, 2016 07:38
[2016-03-08 08:25] VITALS: BP 145/77
[2016-03-08] MEDS: amLODIPine 10 MG (NORVASC) TAB PO SCH (08:42)
[2016-03-08] MEDS: VENlafaxine 75 MG (EFFEXOR) TAB PO SCH (08:42)
--- NOTE | 2016-03-08 09:42 | Progress Note-Urology ---
Progress Note-Urology Progress Notes/Assess & Plan Progress/Assessment & Plan continue same, will see her in office 03/20 Final Diagnosis urine retention, UTIs ELIEZER NOYOLA MD Mar 08, 2016 9:42 am
[2016-03-08 13:36] VITALS: BP 145/77
[2016-04-02] MEDS ORDERED: OXYC-465 PO (07:44)
[2016-04-02] MEDS ORDERED: IBUP-1780 PO (07:44)
[2016-04-02] MEDS ORDERED: DOCU100C37 PO (07:44)
== END 2016-03-08 13:35 | disposition home health service (06) | DRG 872 ==
LOC: EDUNIT# 09:51 → ER 09:57 → 4TH 11:10
PROVIDERS: ADMIT Family Medicine; ATTEND Family Medicine
DX: A41.51 Sepsis due to Escherichia coli [E. coli] (principal); N39.0 Urinary tract infection, site not specified; I10 Essential (primary) hypertension; F41.9 Anxiety disorder, unspecified; E87.6 Hypokalemia; N81.10 Cystocele, unspecified; N81.6 Rectocele; N39.46 Mixed incontinence; N36.42 Intrinsic sphincter deficiency (ISD); N32.81 Overactive bladder; R33.9 Retention of urine, unspecified
CPT/HCPCS: 36415; 74176; 80048; 80053; 81000; 82150; 83605; 83690; 85007; 85025; 85027; 87040; 87077; 87088; 87186; 96361; 96365

== ENCOUNTER 2016-03-26 12:09 | Outpatient (CLI) | payer BC ==
[~2016-03-26] VITALS: Ht 171.4 cm; Wt 99.8 kg
[~2016-03-26 12:09] MED LIST: AMLO10TA2 PO; CIPR500T4 PO; DOXY100C2 PO; EST30C VG; HYDR25TA4 PO; KRIL1CAP19 PO; LISI-552 PO; NITR100C PO; POTA10TA10 PO; POTA99TA21 PO; SIMV20TA3 PO; TRIM100T PO; VNL75T PO
--- OUTSIDE RECORDS SUMMARY | 2016-03-26 12:16 | XMS REPORT | Continuity of Care Document ---
Author Author [facility] Organization [facility] Address Unknown Phone Unavailable Care Team Providers Care Brancher Name Role Phone HARPER FAIRCHILD MD PCP Insurance Providers Payer Name Policy Number Subscriber Name Relationship [facility] [id number] iKel Desai Self / Same As Patient Advance Directives Directive Response Recorded Date/Time Advance Directives No 03/03/16 12:30pm Organ Donor No 03/03/16 12:30pm Resuscitation Status Full Code 03/03/16 12:30pm Chief Complaint and Reason for Visit Chief Complaint UTI WITH SEPSIS Reason for Visit Sepsis secondary to UTI Problems Active Problems Medical Problem Onset Date Status Sepsis secondary to UTI Unknown Acute Medications Current Home Medications Medication Dose Units Route Directions Days/Qty Instructions Start Date Krill/Om-3/Dha/Epa/Phospho/Ast 1 Each 1 Cap Oral Twice A Day Hydrochlorothiazide 25 Mg 25 Mg Oral Daily 03/03/16 Simvastatin 20 Mg 20 Mg Oral Bedtime 03/05/16 Potassium Chloride 10 Meq 10 Meq Oral Daily 03/05/16 Amlodipine Besylate 10 Mg 10 Mg Oral Daily 03/05/16 Venlafaxine Hcl 75 Mg 75 Mg Oral Twice A Day 03/05/16 Estrogens Conjugated 30 Gm 1 Gm Vaginal 1-2 Times Per Week 03/05/16 Nitrofurantoin Macrocrystal 100 Mg 100 Mg Oral Twice A Day 20 03/08/16 Past Home Medications Medication Directions Ordered Status Ciprofloxacin Hcl 500 Mg Tablet, 500 Mg Oral Twice A Day 03/03/16 Discontinued Potassium Gluconate 99 Mg Tablet, 99 Mg Oral Daily 03/03/16 Discontinued Lisinopril 20 Mg Tablet, 20 Mg Oral Daily 03/03/16 Discontinued Trimethoprim 100 Mg Tablet, 100 Mg Oral Bedtime 03/05/16 Discontinued Doxycycline Hyclate 100 Mg Capsule, 100 Mg Oral Daily 03/05/16 Discontinued Social History Social History Problem Response Recorded Date/Time Alcohol Use Occasionally Uses 03/03/2016 12:30pm Recreational Drug Use No 03/03/2016 12:30pm Recent Foreign Travel No 03/03/2016 12:30pm Recent Infectious Disease Exposure No 03/03/2016 12:30pm Hospitalization with Isolation Denies 03/08/2016 1:39pm Smoking Status Former Smoker 03/03/2016 3:25pm Type Used Cigarettes 03/08/2016 1:39pm Recent Hopitalizations No 03/03/2016 12:30pm Hospitalization with Isolation Denies 03/08/2016 1:39pm Query Response Start Date Stop Date Smoking Status Former Smoker Hospital Discharge Instructions Patient Instructions Physician Instructions New, Converted or Re-Newed RX: Transmitted to Pharmacy ([facility]) Plan of Care/Instructions/FU: FU with Dr Fairchild on 03/12 or 03/13/2016. FU with Dr Adame in 2 weeks as requested. Home health to visit daily for post void residual cath. Activity as Tolerated: Yes (as tolerated) Discharge Diet: Low Fat/Low Cholesterol Return to The Hospital For: Febrile or worsening lower abdominal pain Care Plan Patient Instructions:: FU with Dr Fairchild on 03/12 or 03/13/2016.FU with Dr Adame in 2 weeks as requested.Home health to visit daily for post void residual cath. Plan of Care Discharge Date 03/08/16 1:35pm Disposition 09 ADMITTED INPATIENT Instructions/Education Provided Sepsis in Adults Urinary Retention (DC) Prescriptions See Medication Section Referrals (Unspecified) - Reason(s) for Referral: FOLLOW UP WITH DR ADAME SCHEDULED FOR FridayMAR 20 AT 3:30 (Unspecified) - Care Plan and Goals See Discharge Instructions Section Functional Status Query Response Date Recorded Patient Orientation Person Place Time Situation March 08, 2016 1:39pm Comprehension Ability Unable to Comprehend March 04, 2016 8:00am Allergies, Adverse Reactions, Alerts No known allergies. Immunizations No immunization records. Vital Signs Acute Vital Signs Vital Response Date/Time Temperature (Fahrenheit) 98.5 degrees F (97.6 - 99.5) 03/08/2016 1:36pm Temperature (Calculated Celsius) 36.39430 degrees C (36.4 - 37.5) 03/08/2016 8:25am Temperature Source Tympanic 03/08/2016 1:36pm Pulse Rate (adult) 78 bpm (60 - 90) 03/08/2016 1:36pm Respiratory Rate 18 bpm (12 - 24) 03/08/2016 1:36pm O2 Sat by Pulse Oximetry 95 % (88 - 100) 03/08/2016 1:36pm Blood Pressure 145/77 mm Hg 03/08/2016 1:36pm Blood Pressure Mean 99 mm Hg 03/08/2016 8:25am Pain Numeric Pain Scale 0-No Pain 03/08/2016 1:36pm Pain Intensity 3 03/07/2016 5:38pm Height (Feet) 5 feet 03/03/2016 12:30pm Height (Inches) 6.00 inches 03/03/2016 12:30pm Height (Calculated Centimeters) 167.239568 cm 03/03/2016 12:30pm Weight (Pounds) 220 pounds 03/03/2016 3:07pm Weight (Ounces) 0.0 oz 03/03/2016 3:07pm Weight (Calculated Grams) 64290.322 gm 03/03/2016 3:07pm Weight (Calculated Kilograms) 99.689264 kilograms 03/03/2016 3:07pm Calculated BMI 35.5 03/03/2016 12:30pm Capillary Refill Capillary Refill Less Than 3 Seconds 03/03/2016 10:35am Results Laboratory Results Test Name Result Units Flags Reference Collection Date/Time Result Date/ Time Comments White Blood Count 9.1 10^3/uL 4.3-11.0 03/07/2016 5:47am 03/07/2016 6: 09am Red Blood Count 3.70 10^6/uL L 4.35-5.85 03/07/2016 5:47am 03/07/2016 6: 09am Hemoglobin 11.7 G/DL 11.5-16.0 03/07/2016 5:47am 03/07/2016 6:09am Hematocrit 35 % 35-52 03/07/2016 5:47am 03/07/2016 6:09am Mean Corpuscular Volume 95 FL 80-99 03/07/2016 5:47am 03/07/2016 6: 09am Mean Corpuscular Hemoglobin 32 PG 25-34 03/07/2016 5:47am 03/07/2016 6: 09am Mean Corpuscular Hemoglobin Concent 33 G/DL 32-36 03/07/2016 5:47am 07/2016 6:09am Red Cell Distribution Width 13.1 % 10.0-14.5 03/07/2016 5:47am 2016 6:09am Platelet Count 495 10^3/uL H 130-400 03/07/2016 5:47am 03/07/2016 6:09am Mean Platelet Volume 9.6 FL 7.4-10.4 03/07/2016 5:47am 03/07/2016 6: 09am Neutrophils (%) (Auto) 59 % 42-75 03/07/2016 5:47am 03/07/2016 6:09am Lymphocytes (%) (Auto) 22 % 12-44 03/07/2016 5:47am 03/07/2016 6:09am Monocytes (%) (Auto) 18 % H 0-12 03/07/2016 5:47am 03/07/2016 6:09am Eosinophils (%) (Auto) 1 % 0-10 03/07/2016 5:47am 03/07/2016 6:09am Basophils (%) (Auto) 0 % 0-10 03/07/2016 5:47am 03/07/2016 6:09am Neutrophils # (Auto) 5.4 X 10^3 1.8-7.8 03/07/2016 5:47am 03/07/2016 6: 09am Lymphocytes # (Auto) 2.0 X 10^3 1.0-4.0 03/07/2016 5:47am 03/07/2016 6: 09am Monocytes # (Auto) 1.6 X 10^3 H 0.0-1.0 03/07/2016 5:47am 03/07/2016 6: 09am Eosinophils # (Auto) 0.1 10^3/uL 0.0-0.3 03/07/2016 5:47am 03/07/2016 6 :09am Basophils # (Auto) 0.0 10^3/uL 0.0-0.1 03/07/2016 5:47am 03/07/2016 6: 09am Neutrophils % (Manual) 72 % 03/03/2016 10:35am 03/03/2016 11:15am Band Neutrophils 1 % 03/03/2016 10:35am 03/03/2016 11:15am Lymphocytes % (Manual) 12 % 03/03/2016 10:35am 03/03/2016 11:15am Monocytes % (Manual) 15 % 03/03/2016 10:35am 03/03/2016 11:15am Eosinophils % (Manual) 0 % 03/03/2016 10:35am 03/03/2016 11:15am Basophils % (Manual) 0 % 03/03/2016 10:35am 03/03/2016 11:15am Blood Morphology Comment NORMAL 03/03/2016 10:35am 03/03/2016 11: 15am Urine Color YELLOW 03/03/2016 10:35am 03/03/2016 11:10am Urine Clarity VERY CLOUDY * 03/03/2016 10:35am 03/03/2016 11:10am Urine pH 6 5-9 03/03/2016 10:35am 03/03/2016 11:10am Urine Specific [place] 1.010 * 1.016-1.022 03/03/2016 10:35am 2016 11:10am Urine Protein 3+ * NEGATIVE 03/03/2016 10:35am 03/03/2016 11:10am Urine Glucose (UA) NEGATIVE NEGATIVE 03/03/2016 10:35am 03/03/2016 11 :10am Urine RBC (Auto) 3+ * NEGATIVE 03/03/2016 10:35am 03/03/2016 11:10am Urine Ketones NEGATIVE NEGATIVE 03/03/2016 10:35am 03/03/2016 11: 10am Urine Nitrite POSITIVE * NEGATIVE 03/03/2016 10:35am 03/03/2016 11: 10am Urine Bilirubin NEGATIVE NEGATIVE 03/03/2016 10:35am 03/03/2016 11: 10am Urine Urobilinogen NORMAL MG/DL NORMAL 03/03/2016 10:35am 03/03/2016 11 :10am Urine Leukocyte Esterase 3+ * NEGATIVE 03/03/2016 10:35am 03/03/2016 11 :10am Urine RBC 5-10 /HPF * 03/03/2016 10:35am 03/03/2016 11:10am Urine WBC TNTC /HPF * 03/03/2016 10:35am 03/03/2016 11:10am Urine Bacteria LARGE /HPF * 03/03/2016 10:35am 03/03/2016 11:10am Urine Crystals NONE /LPF 03/03/2016 10:35am 03/03/2016 11:10am Urine Casts NONE /LPF 03/03/2016 10:35am 03/03/2016 11:10am Urine Mucus NEGATIVE /LPF 03/03/2016 10:35am 03/03/2016 11:10am Urine Culture Indicated YES 03/03/2016 10:35am 03/03/2016 11:10am Sodium Level 139 MMOL/L 135-145 03/07/2016 5:47am 03/07/2016 7:07am Potassium Level 3.7 MMOL/L 3.6-5.0 03/07/2016 5:47am 03/07/2016 7:07am Chloride Level 106 MMOL/L 98-107 03/07/2016 5:47am 03/07/2016 7:07am Carbon Dioxide Level 23 MMOL/L 21-32 03/07/2016 5:47am 03/07/2016 7: 07am Anion Gap 10 MMOL/L 5-14 03/07/2016 5:47am 03/07/2016 7:07am Blood Urea Nitrogen 5 MG/DL L 7-18 03/07/2016 5:47am 03/07/2016 7:07am Creatinine 0.61 MG/DL 0.60-1.30 03/07/2016 5:47am 03/07/2016 7:07am BUN/Creatinine Ratio 8 03/07/2016 5:47am 03/07/2016 7:07am Estimat Glomerular Filtration Rate > 60 03/07/2016 5:47am 2016 7:07am GFR INTERPRETIVE DATA UNITS FOR ESTIMATED GFR (eGFR): mL/min/1.73 M2 REFERENCE RANGE FOR ESTIMATED GFR (eGFR) eGFR NORMAL eGFR >60 MODERATELY DECREASED eGFR 30-59 SEVERLY DECREASED eGFR 15-29 KIDNEY FAILURE <15 (OR DIALYSIS) Glucose Level 104 MG/DL 70-105 03/07/2016 5:47am 03/07/2016 7:07am Calcium Level 9.0 MG/DL 8.5-10.1 03/07/2016 5:47am 03/07/2016 7:07am Total Bilirubin 0.5 MG/DL 0.1-1.0 03/04/2016 7:25am 03/04/2016 8:15am Alkaline Phosphatase 104 U/L 40-136 03/04/2016 7:25am 03/04/2016 8: 15am Aspartate Amino Transf (AST/SGOT) 25 U/L 5-34 03/04/2016 7:25am 2016 8:15am Alanine Aminotransferase (ALT/SGPT) 24 U/L 0-55 03/04/2016 7:25am 03/04 8:15am Total Protein 7.4 G/DL 6.4-8.2 03/04/2016 7:25am 03/04/2016 8:15am Albumin 3.8 G/DL 3.2-4.5 03/04/2016 7:25am 03/04/2016 8:15am Amylase Level 85 U/L 25-125 03/03/2016 10:35am 03/03/2016 11:06am Lipase 66 U/L 8-78 03/03/2016 10:35am 03/03/2016 11:06am Lactic Acid Level 1.2 MMOL/L 0.5-2.0 03/03/2016 10:40am 03/03/2016 11: 06am Microbiology Results Procedure Source Result Collection Date/Time Result Date/Time Blood Culture Peripheral, Rt Ac ESCHERICHIA COLI 03/03/2016 10:40am 2016 3:42pm Blood Culture Peripheral, Lt Ac ESCHERICHIA COLI 03/03/2016 11:35am 2016 3:45pm Urine Culture Urine, Clean Catch ESCHERICHIA COLI 03/03/2016 10:35am 2016 10:38am Procedures No known history of procedures. Encounters Encounter Location Arrival/Admit Date Discharge/Depart Date Attending Provider Discharged Inpatient [facility] 03/03/16 11:10am 1:35pm HARPER FAIRCHILD MD Recent Diagnosis Sepsis secondary to UTI
[2016-03-26 12:21] VITALS: BP 139/79
[2016-03-26 13:13] LABS: BILIRUBIN,URINE NEGATIVE (NEGATIVE); KETONES,URINE NEGATIVE (NEGATIVE); LEUKOCYTE ESTERASE ,URINE 3+ (NEGATIVE); NITRITE,URINE NEGATIVE (NEGATIVE); PH,URINE 6.5 (5-9); PROTEIN,URINE 2+ (NEGATIVE); UROBILINOGEN,URINE NORMAL (NORMAL); WBC,URINE >100 /HPF
== END 2016-03-26 12:50 | disposition home or self-care (01) ==
LOC: PREOP 12:09
PROVIDERS: ATTEND Obstetrics & Gynecology
DX: Z01.818 Encounter for other preprocedural examination (principal); Z11.2 Encounter for screening for other bacterial diseases; N81.4 Uterovaginal prolapse, unspecified; D25.9 Leiomyoma of uterus, unspecified; N39.3 Stress incontinence (female) (male); D64.9 Anemia, unspecified
CPT/HCPCS: 81000; 87077; 87081; 87088; 87186

== ENCOUNTER 2016-04-01 06:03 | Day surgery (SDC) | payer BC ==
[~2016-04-01] VITALS: Ht 171.4 cm; Wt 99.8 kg
--- OUTSIDE RECORDS SUMMARY | 2016-04-01 06:13 | XMS REPORT | Continuity of Care Document ---
Author Author [facility] Organization [facility] Address Unknown Phone Unavailable Care Team Providers Care Supervisor Molding Name Role Phone HARPER FAIRCHILD MD PCP Insurance Providers Payer Name Policy Number Subscriber Name Relationship [facility] [id number] Kiel Desai Self / Same As Patient Advance [...] Converted or Re-Newed RX: Transmitted to Pharmacy ([facility]) Plan of Care/Instructions/FU: FU with Dr Fairchild [...] - 99.5) 03/08/2016 1:36pm Temperature (Calculated Celsius) 36.23092 degrees C (36.4 - 37.5) 03/08/2016 8:25am [...] 6.00 inches 03/03/2016 12:30pm Height (Calculated Centimeters) 167.745232 cm 03/03/2016 12:30pm Weight (Pounds) 220 pounds 03/03/2016 3:07pm Weight (Ounces) 0.0 oz 03/03/2016 3:07pm Weight (Calculated Grams) 24229.322 gm 03/03/2016 3:07pm Weight (Calculated Kilograms) 99.265060 kilograms 03/03/2016 3:07pm Calculated BMI 35.5 03/03/2016 [...] 5-9 03/03/2016 10:35am 03/03/2016 11:10am Urine Specific [place] 1.010 * 1.016-1.022 03/03/2016 10:35am 2016 11:10am [...] Discharge/Depart Date Attending Provider Discharged Inpatient [facility] 03/03/16 11:10am 1:35pm HARPER FAIRCHILD MD Recent Diagnosis Sepsis secondary to UTI
--- OUTSIDE RECORDS SUMMARY | 2016-04-01 06:13 | XMS REPORT | Continuity of Care Document ---
Author Author [facility] Organization [facility] Address Unknown Phone Unavailable Care Team Providers Care Science Consultant Name Role Phone HARPER FAIRCHILD MD PCP Insurance Providers Payer Name Policy Number Subscriber Name Relationship [facility] [id number] Kiel Desai Self / Same As Patient [...] Converted or Re-Newed RX: Transmitted to Pharmacy ([facility]) Plan of Care/Instructions/FU: FU with Dr [...] - 99.5) 03/08/2016 1:36pm Temperature (Calculated Celsius) 36.35859 degrees C (36.4 - 37.5) 03/08/2016 8:25am [...] 6.00 inches 03/03/2016 12:30pm Height (Calculated Centimeters) 167.981901 cm 03/03/2016 12:30pm Weight (Pounds) 220 pounds 03/03/2016 3:07pm Weight (Ounces) 0.0 oz 03/03/2016 3:07pm Weight (Calculated Grams) 73944.322 gm 03/03/2016 3:07pm Weight (Calculated Kilograms) 99.860962 kilograms 03/03/2016 3:07pm Calculated BMI 35.5 03/03/2016 [...] 5-9 03/03/2016 10:35am 03/03/2016 11:10am Urine Specific [place] 1.010 * 1.016-1.022 03/03/2016 10:35am 2016 11:10am [...] Discharge/Depart Date Attending Provider Discharged Inpatient [facility] 03/03/16 11:10am 1:35pm HARPER FAIRCHILD MD Recent Diagnosis Sepsis secondary to UTI
[2016-04-01 06:15] VITALS: BP 140/83
[2016-04-01] MEDS: LACTATED RINGERS 1,000 ML IV PRN ×3 (06:15→10:38)
[2016-04-01] MEDS ORDERED: ONDANSETRON 4 MG/2 ML (SDV) Z0FRAN IV ONE (06:45)
[2016-04-01] MEDS ORDERED: FAMOTIDINE 20MG/2ML IV (PEPCID) IV ONE (06:45)
[2016-04-01] MEDS ORDERED: SCOPOLAMINE 1.5 MG (TRANSDERM-SCOP) PATCH TOP ONE (06:45)
[2016-04-01] MEDS ORDERED: LIDOCAINE JELLY 2% (XYLOCAINE) 5 ML TUBE ONE (06:55)
[2016-04-01] MEDS ORDERED: proPOfol 200 MG/20 ML (DIPRIVAN) VIAL IV ONE (06:55)
[2016-04-01] MEDS ORDERED: LACTATED RINGERS 1,000 ML IV ONE ×3 (06:55→10:35)
[2016-04-01] MEDS ORDERED: ONDANSETRON 4 MG/2 ML (SDV) Z0FRAN ONE (06:55)
[2016-04-01] MEDS ORDERED: ROCURONIUM 50 MG/5 ML (ZEMURON) VIAL IV ONE (06:55)
[2016-04-01] MEDS ORDERED: LIDOCAINE PF 2% 10 ML (XYLOCAINE) AMP ONE (06:55)
[2016-04-01] MEDS ORDERED: fentaNYL INJECTION 100 MCG/2 ML AMP ONE ×2 (06:55→08:44)
[2016-04-01] MEDS ORDERED: MIDAZOLAM 2 MG/2 ML (VERSED) VIAL ONE (06:58)
[2016-04-01] MEDS ORDERED: ceFAZolin 1 GM/NS 50 ML IVPB IV ONE ×2 (07:00)
--- NOTE | 2016-04-01 07:13 | Progress Note-Post Operative ---
Post-Operative Progess Note Pre-Operative Diagnosis Incontinence, ISD, OAB, CYSTOCELE Post-Operative Diagnosis SAME Post-Op Procedure Note Date of Procedure: Apr 01, 2016 Name of Procedure: PVS, and cysto Anesthesia Type general Estimated blood loss (mL): 0 ELIEZER NOYOLA MD Apr 01, 2016 7:13 am
--- NOTE | 2016-04-01 07:28 | Progress Note-Pre Operative ---
Pre-Operative Progress Note H&P Reviewed The H&P was reviewed, patient examined and no changes noted. Date H&P Reviewed: Apr 01, 2016 Time H&P Reviewed: 07:28 Pre-Operative Diagnosis: uterovaginal prolapse/stress urine incontinence/ uterine fibroids ROSIO HERMOSILLO MD Apr 01, 2016 7:28 am
[2016-04-01] MEDS ORDERED: BENZOCAINE/MENTHOL (DERMOPLAST) 56 ML CAN TP PRN (07:30)
[2016-04-01] MEDS ORDERED: ESTROGENS CONJ IV 25 MG/5 ML (PREMARIN) VIAL IVP ONE (07:30)
[2016-04-01] MEDS ORDERED: MEPERIDINE (DEMEROL) INJ 100 MG/ML IM PRN (07:30)
[2016-04-01] MEDS ORDERED: ONDANSETRON 4 MG/2 ML (SDV) Z0FRAN IVP PRN ×2 (07:30→10:15)
[2016-04-01] MEDS ORDERED: PROMETHAZINE INJ 25 MG/ML (PHENERGAN) AMP IM PRN (07:30)
[2016-04-01] MEDS ORDERED: WATER (STERILE) FOR INJ 10 ML BTL INJ ONE (07:30)
[2016-04-01] MEDS ORDERED: ESTRADIOL VAGINAL CREAM 42.5 GM (ESTRACE) VG ONE (07:31)
[2016-04-01] MEDS ORDERED: BUP/EPI 0.25% 1:200,000 (MARCAINE) 30 ML VIAL ONE (07:31)
[2016-04-01] MEDS ORDERED: MEROPENEM 500 MG VIAL (MERREM) IV ONE (07:40)
[2016-04-01] MEDS ORDERED: NORMAL SALINE (BAXTER MINI) 50 ML IV ONE (07:41)
[2016-04-01] MEDS ORDERED: MEROPENEM 500 MG/NS 100 ML IVPB IV ONE ×2 (08:00)
[2016-04-01] MEDS ORDERED: NITR-65 PO (08:58)
[2016-04-01] MEDS ORDERED: KETOROLAC 30 MG/ML VIAL ONE (09:45)
[2016-04-01] MEDS ORDERED: morphine INJ 10 MG/ML 1ML (SYR OR VIAL) ONE ×2 (09:46→09:47)
[2016-04-01] MEDS ORDERED: WATER (STERILE) FOR INJECTION 10 ML ONE (09:48)
[2016-04-01] MEDS ORDERED: ESTROGENS CONJ IV 25 MG/5 ML (PREMARIN) VIAL ONE (09:48)
[2016-04-01] MEDS ORDERED: SEVOFLURANE (ULTANE) 15 ML INHAL SOLN ONE (09:57)
[2016-04-01] MEDS: ESTROGENS CONJ IV 25 MG/5 ML (PREMARIN) VIAL IV ONE ×2 (10:00→10:48)
[2016-04-01] MEDS ORDERED: morphine INJ 10 MG/ML 1ML (SYR OR VIAL) IVP PRN (10:15)
[2016-04-01] MEDS ORDERED: MEPERIDINE (DEMEROL) INJ 50 MG/ML IVP PRN (10:15)
--- NOTE | 2016-04-01 10:39 | OPERATIVE REPORT ---
PROCEDURE PHYSICIAN: ELIEZER NOYOLA DATE OF PROCEDURE: 04/01/2016 PREOPERATIVE DIAGNOSIS: Urinary incontinence, overactive bladder and ISD. POSTOPERATIVE DIAGNOSIS: Urinary incontinence, overactive bladder and ISD. OPERATION: Pubovaginal sling and cystoscopy. SURGEON: Deep ANESTHESIA: General. COMPLICATIONS: None. PROCEDURE: After Dr. Holt did his first part of his surgery that he will dictate, we inserted a Lance catheter draining clear urine. I passed the Solyx type pubovaginal sling instruments, first on the left side using the described technique on the right side. The sling was sitting nicely under the mid urethra with no tension and no twist and passage of a curved hemostat easily between it and the underlying tissue. I removed the Lance catheter, performed the cystoscopy to confirm the integrity of the bladder, ureteral orifices and urethra with no foreign body. I left the bladder half full to perform a manual Valsalva maneuver, after removing the Lance catheter and it was negative. I reinserted the Lance catheter draining clear fluid. Estimated blood loss on my part is 0. The patient tolerated the procedure and anesthesia well and Dr. Holt proceeded with the rest of his surgery that he will dictate. Job ID: [id number] Dictated Date: 04/01/2016 09:41:37 Infusion Therapy Nurse Date: 04/01/2016 10:32:49 / radha LIAO
[2016-04-01 11:20] VITALS: BP 143/83
--- NOTE | 2016-04-01 11:27 | OPERATIVE REPORT ---
PROCEDURE PHYSICIAN: ROSIO HERMOSILLO DATE OF PROCEDURE: 04/01/2016 DATE OF DICTATION: 04/01/2016 PREOPERATIVE DIAGNOSIS: 1. Vaginal prolapse. 2. Stress urinary incontinence. 3. Uterine fibroids. POSTOPERATIVE DIAGNOSIS: 1. Vaginal prolapse. 2. Stress urinary incontinence. 3. Uterine fibroids. OPERATIVE PROCEDURE: Total laparoscopic hysterectomy with bilateral salpingo-oophorectomy as well as anterior and posterior vaginal repairs with enterocele repair and Dr. Adame performing a pubovaginal sling and cystoscopy. OPERATIVE PROCEDURE: With the patient in supine position, under satisfactory general anesthesia, she was repositioned in dorsal lithotomy position in the [facility] and prepped and draped usual fashion for abdominal and vaginal surgery using robotic assistance. Weighted speculum placed in posterior fornix of vagina. Cervix exposed and grasped anteriorly with single-tooth tenaculum. The uterus sounded to 11 cm uterine sound. The cervix was then serially dilated to accommodate a BRENDA 2 manipulator was placed using a 30 mm colpotomy ring and a 6 mm x 8 cm uterine probe sutures of number 1 Vicryl were placed at 3 and 9 o'clock position of the cervix and affixed to the manipulator. The patient was brought in low dorsal lithotomy position. Lance cath was placed in the urinary bladder. A 12 mm incision was made superior to the umbilicus and 8 mm incisions were made 9 cm lateral to the umbilicus. All those incision sites were infiltrated with quarter percent Marcaine with epinephrine prior to incision. A Veress needle placed through the supraumbilical incision, correct placement was confirmed with the water drop test. The abdomen was insufflated 2.4 liters of carbon dioxide and the Veress needle was removed and a 12 mm Optiview laparoscopic port placed. The laparoscope was introduced. The lateral ports were placed, 8 mm ports were placed under direct vision. The patient placed in Trendelenburg and the da Jose column advanced on to patient and docked and operative instruments placed in the right and left lateral ports and I retired to the da Jose console. At the console, using the vessel sealer initially on the right and bipolar fenestrated grasper on the left, the pelvis was first examined. The ovaries were somewhat atretic. There was a very nodular lumpy, mottled appearing uterus consistent with fibroids and/or adenomyosis. The tubes were normal. The laparoscope was rotated. The appendix was surgically absent. The upper abdomen was normal. Laparoscope was brought back to the pelvis. The vessel sealer was used to grasp the IP ligament well away from the ureter. The IP ligament was clamped, cauterized, and divided. This was continued stepwise across the mesovarium across the round ligament, across the broad ligaments, and eventually down on to cardinal ligaments; the same procedure performed on the left, allowing for removal of both tubes and ovaries eventually with the uterus. The anterior lower uterine segment was then exposed using a monopolar shear on the right now. An incision was made across the peritoneum on the lower uterine segment. The bladder was carefully dissected down off the lower uterine segment. Colpotomy incision was made at the 12 o'clock position over the colpotomy ring. The colpotomy ring was exposed dissecting circumferentially. When the entire ring was exposed the uterus was extracted through the vagina with tubes and ovaries still attached. The vaginal cuff was closed with 2 V-Loc barbed sutures being careful to include the uterine vessels in that closure on each side and also taking care to be well away from the ureter on each side. The ureters were seen to peristalt before, during, and after the closure. The sutures were brought up into the uterosacral ligaments to support the apex of the vagina nicely. With the vaginal cuff closed, the procedure was terminated. The pelvis was irrigated and examined for hemostasis. With that being complete, the blood loss at this point less than 15 mL the operative instruments were removed under direct vision, as were the ports. The abdomen was evacuated of insufflating gas and then the patient was brought out of Trendelenburg. The skin incisions were stapled closed and the fascia at the umbilical incision was closed with [id number] suture of 2-0 Vicryl. The patient now repositioned in dorsal lithotomy position for anterior and posterior vaginal repair. The Lance catheter was removed. Weighted speculum placed in posterior fornix of the vagina. Vaginal wall anterior was grasp with two Nena clamps. The vaginal wall was opened in the midline with Metzenbaum scissors. That opening was continued to approximately a centimeter and a half from the urethral meatus and almost to the vaginal apex. The bladder wall was carefully dissected off of the muscularis of the vagina back to pubic rami bilaterally. The bladder wall was then plicated with 2-0 Vicryl sutures elevating the bladder and lengthening the urethra and replaced in the bladder up into the pelvis nicely. Dr. Adame assumed care of the patient at this point for pubovaginal sling and cystoscopy. Upon completion, I remained to assist during Dr. Adame's portion of the procedure. Upon completion of his portion procedure of the procedure, I resumed care of the patient, resected the redundant anterior vaginal muscularis and mucosa and then closed the vaginal wall with a running lock suture of 3-0 Vicryl. Hemostasis was complete and good support was evident. Posterior repair was now effected by placing Nena clamps on the perineum and hymenal ring at 5 and 7 o'clock position. An inverted triangle skin was removed from the perineal body and upright triangle from the posterior vaginal floor. The rectovaginal space was then sharply dissected bluntly to the apex of the vagina. It was explored for an enterocele, there was a small enterocele that was reduced and plicated with 2 sutures of 2-0 Vicryl making a purse string. This obliterated the enterocele nicely. The rectovaginal space was then obliterated with additional sutures of 2-0 Vicryl restoring the perineal body. The perineal body itself was reinforced with additional suture of 2-0 Vicryl as well. Redundant posterior vaginal wall muscularis and mucosa was then removed sharply. The vaginal wall was closed with a running lock suture of 3-0 Vicryl. That closure was continued past the hymenal ring down on perineal body then back up subcutaneous to the introitus where the suture was tied. Sponge and needle counts were correct. With hemostasis assured, the vagina was filled was Estrace vaginal cream and pack of Kerlix gauze was placed. Sponge and needle counts were correct at the end of procedure. Estimated blood loss for the procedure was around 150 mL the patient tolerated the procedure well, and was uneventfully awakened from her general anesthesia and transferred to recovery room in stable condition with plans for discharge home tomorrow. Job ID: [id number] Dictated Date: 04/01/2016 10:03:49 [employer] Estimator Date: 04/01/2016 11:09:51 / radha
[2016-04-01] MEDS: KETOROLAC 15 MG/ML VIAL IVP SCH ×3 (11:43→23:50)
[2016-04-01] MEDS ORDERED: MEROPENEM 500 MG in NORMAL SALINE (BAXTER MINI) 100 ML IV SCH (14:00)
[2016-04-01 14:30] VITALS: BP 119/75
[2016-04-01] MEDS: D5 LR IV SOLUTION 1,000 ML IV SCH ×3 (16:01→23:50)
[2016-04-01] MEDS: oxyCODONE/APAP 10/325MG (PERCOCET 10) TABLET PO PRN ×2 (16:01→21:25)
[2016-04-01] MEDS: MEROPENEM 500 MG in NORMAL SALINE (BAXTER MINI) 100 ML IV SCH ×2 (17:51→23:50)
[2016-04-01 18:35] VITALS: BP 120/59
[2016-04-01 20:00] VITALS: BP 117/63
[2016-04-02 00:18] VITALS: BP 123/70
[2016-04-02] MEDS: oxyCODONE/APAP 10/325MG (PERCOCET 10) TABLET PO PRN ×3 (04:19→21:31)
[2016-04-02 04:25] VITALS: BP 123/74
[2016-04-02] MEDS: KETOROLAC 15 MG/ML VIAL IVP SCH (05:46)
[2016-04-02] MEDS: MEROPENEM 500 MG in NORMAL SALINE (BAXTER MINI) 100 ML IV SCH (05:47)
--- NOTE | 2016-04-02 07:43 | Progress Note-Standard ---
Standard Progress Note Progress Notes/Assess & Plan Progress/Assessment & Plan patient is without complaint. She is ambulating, tolerating fairly well, has good pain control, denies chest pain, denies shortness of breath, denies nausea vomiting, denies headache. Patient has not voided yet Vital Signs Date Time Temp Pulse Resp B/P Pulse Ox O2 Delivery O2 Flow Rate FiO2 04/02/16 04:25 98.4 75 18 123/74 92 Room Air 04/02/16 00:18 98.0 75 18 123/70 94 Room Air 04/01/16 21:00 Room Air 04/01/16 20:00 98.5 88 20 117/63 91 Room Air 04/01/16 18:35 99.2 89 20 120/59 98 Room Air 04/01/16 14:30 98.5 95 18 119/75 96 Nasal Cannula 3.00 04/01/16 11:20 97.8 81 20 143/83 91 Nasal Cannula 3.00 04/01/16 11:15 Nasal Cannula 3.00 I & O 04/02/16 07:00 Intake Total 7440 ml Output Total 5825 ml Balance 1615 ml Vital signs are stable. Patient is afebrile. Abdomen is benign. Extremities show clubbing cyanosis. There is no Homans sign. Assessment and plan postoperative day number 1 doing well. Plan is for routine convalescence care and consideration for discharge home today ROSIO HERMOSILLO MD Apr 02, 2016 7:43 am
[2016-04-02] MEDS ORDERED: OXYC-465 PO (07:44)
[2016-04-02] MEDS ORDERED: IBUP-1780 PO (07:44)
[2016-04-02] MEDS ORDERED: DOCU100C37 PO (07:44)
--- NOTE | 2016-04-02 07:47 | Discharge Instructions ---
Discharge Instructions Discharge Medications New, Converted or Re-Newed RX: RX on Chart Patient Instructions Patient Instructions: as directed Return to The Hospital For: as directed Activity & Diet Discharge Diet: No Restrictions Activity as Tolerated: No Orders-Post D/C & Referrals Follow Up Appt: return to clinic this Friday, April 05, 2016 at 930 a.m. for staple removal Call to make follow up appt. for patient in 4 weeks. follow-up with Dr. Robles per his instructions Activity: Rest for 24 hours, than as tolerated. Wound Care: May remove Band-Aid tomorrow. Replace as desired. Keep incisions clean and dry. Wash daily with soap and water. Please call in RX to patient pharmacy. continue her own home medications as prescribed. Continue antibiotics for urinary tract infection per Dr. Robles's instruction Diet: As tolerated-Clear Liquids only if nauseated. Tomorrow, may shower or tub bathe as desired. No driving for 24 hours, no alcoholic beverages for 24 hours, and nothing per vagina (no tampons, douching, or intercourse) for 8 weeks. Patient to return to the clinic as soon as possible for: Temperature greater than 101F, Severe Pain, Foul discharge from incision or vagina, Excessive Bleeding (more than a period). ROSIO HERMOSILLO MD Apr 02, 2016 7:46 am
--- NOTE | 2016-04-02 08:04 | Progress Note-Standard ---
Standard Progress Note Progress Notes/Assess & Plan Progress/Assessment & Plan patient is without complaint. She is ambulating, tolerating fairly well, has good pain control, denies chest pain, denies shortness of breath, denies nausea vomiting, denies headache. Patient has not voided yet Vital Signs Date Time Temp Pulse Resp B/P Pulse Ox O2 Delivery O2 Flow Rate FiO2 04/02/16 04:25 98.4 75 18 123/74 92 Room Air 04/02/16 00:18 98.0 75 18 123/70 94 Room Air 04/01/16 21:00 Room Air 04/01/16 20:00 98.5 88 20 117/63 91 Room Air 04/01/16 18:35 99.2 89 20 120/59 98 Room Air 04/01/16 14:30 98.5 95 18 119/75 96 Nasal Cannula 3.00 04/01/16 11:20 97.8 81 20 143/83 91 Nasal Cannula 3.00 04/01/16 11:15 Nasal Cannula 3.00 I & O 04/02/16 07:00 Intake Total 7440 ml Output Total 5825 ml Balance 1615 ml Vital signs are stable. Patient is afebrile. Abdomen is benign. Extremities show clubbing cyanosis. There is no Homans sign. Assessment and plan postoperative day number 1 doing well. Plan is for routine convalescence care and consideration for discharge home today Final Diagnosis vaginal prolapse/dressing incontinence/fibroid ROSIO HERMOSILLO MD Apr 02, 2016 8:04 am
[2016-04-02] MEDS: DOCUSATE SODIUM 100 MG (COLACE) CAP PO SCH ×2 (08:20→21:31)
[2016-04-02 08:21] VITALS: BP 119/60
--- NOTE | 2016-04-02 11:35 | Progress Note-Urology ---
Progress Note-Urology Progress Notes/Assess & Plan Progress/Assessment & Plan doing and feeling well, no voiding yet, no leakage. Plan 1. in 1 hr if no voiding, do bladder scan and if over 400cc have patient self cath 2. DC later on today, plan according to #1 3. Finish Macrobid at home, ESBL sensitive to it and helped her preop, also eGFR nl, creatinine nl, and under 65 4. F/U appointment depending on voiding status 5. Provide her with new ISC kit upon discharge Final Diagnosis incontinence ELIEZER NOYOLA MD Apr 02, 2016 11:35 am
--- NOTE | 2016-04-02 12:39 | Anesthesia-General Post-Op ---
General Patient Condition Mental Status/LOC: Same as Preop Cardiovascular: Satisfactory Nausea/Vomiting: Absent Respiratory: Satisfactory Pain: Controlled Complications: Absent Post Op Complications Complications None Follow Up Care/Instructions Patient Instructions None needed. Anesthesia/Patient Condition Patient Condition Patient is doing well, no complaints, stable vital signs, no apparent adverse anesthesia problems. No complications reported per nursing. DRAGAN PEDROZA CRNA Apr 02, 2016 12:39
[2016-04-02] MEDS: IBUPROFEN 800 MG (MOTRIN) TAB PO SCH ×2 (12:43→21:31)
[2016-04-02 14:35] VITALS: BP 110/52
[2016-04-02 21:00] VITALS: BP 137/73
[2016-04-02] MEDS: NITROFURANTOIN 100 MG (MACROBID) CAPSULE PO SCH (21:31)
[2016-04-03] VITALS: BP 118/64
[2016-04-03] MEDS: MEROPENEM 500 MG in NORMAL SALINE (BAXTER MINI) 100 ML IV SCH ×3 (02:32→05:10)
[2016-04-03 04:00] VITALS: BP 138/63
[2016-04-03] MEDS: IBUPROFEN 800 MG (MOTRIN) TAB PO SCH ×3 (06:45→14:00)
--- NOTE | 2016-04-03 07:32 | Progress Note-Standard ---
Standard Progress Note Progress Notes/Assess & Plan Progress/Assessment & Plan patient is without complaint. She is ambulating, tolerating fairly well, has good pain control, denies chest pain, denies shortness of breath, denies nausea vomiting, denies headache. Patient has not voided yet Vital Signs Date Time Temp Pulse Resp B/P Pulse Ox O2 Delivery O2 Flow Rate FiO2 04/02/16 04:25 98.4 75 18 123/74 92 Room Air 04/02/16 00:18 98.0 75 18 123/70 94 Room Air 04/01/16 21:00 Room Air 04/01/16 20:00 98.5 88 20 117/63 91 Room Air 04/01/16 18:35 99.2 89 20 120/59 98 Room Air 04/01/16 14:30 98.5 95 18 119/75 96 Nasal Cannula 3.00 04/01/16 11:20 97.8 81 20 143/83 91 Nasal Cannula 3.00 04/01/16 11:15 Nasal Cannula 3.00 I & O 04/02/16 07:00 Intake Total 7440 ml Output Total 5825 ml Balance 1615 ml Vital signs are stable. Patient is afebrile. Abdomen is benign. Extremities show clubbing cyanosis. There is no Homans sign. Assessment and plan postoperative day number 1 doing well. Plan is for routine convalescence care and consideration for discharge home today April 03, 2016 Patient without complaint. She is ambulating, tolerating by mouth well, has good pain control, is ready for discharge home. Vital Signs Date Time Temp Pulse Resp B/P Pulse Ox O2 Delivery O2 Flow Rate FiO2 04/03/16 04:00 97.0 90 18 138/63 92 Room Air 04/03/16 00:00 97.6 87 18 118/64 92 Room Air 04/02/16 21:00 99.6 88 18 137/73 92 Room Air 04/02/16 15:30 99.0 95 Room Air 04/02/16 14:35 99.8 83 20 110/52 91 Room Air 04/02/16 08:21 98.8 85 18 119/60 94 Room Air I & O 04/03/16 07:00 Intake Total 2100 ml Output Total 4600 ml Balance -2500 ml Vital signs are stable. Patient afebrile. Abdomen is benign. Extreme show clubbing or cyanosis. There is no Homans sign. Assessment and plan postoperative day number 2 doing well. Plan is for discharge home with follow-up in clinic. Final Diagnosis vaginal prolapse/stress urinary incontinence/fibroids ROSIO HERMOSILLO MD Apr 03, 2016 7:32 am
[2016-04-03] MEDS ORDERED: MEROPENEM 500 MG in NS (IVPB) 100 ML IV SCH (08:00)
[2016-04-03 08:30] VITALS: BP 135/73
[2016-04-03] MEDS: DOCUSATE SODIUM 100 MG (COLACE) CAP PO SCH (09:06)
[2016-04-03] MEDS: NITROFURANTOIN 100 MG (MACROBID) CAPSULE PO SCH (09:06)
--- NOTE | 2016-04-03 09:32 | Progress Note-Urology ---
Progress Note-Urology Progress Notes/Assess & Plan Progress/Assessment & Plan UNABLE TO VOID ON OWN YET, ABLE TO SELF CATH EASILY WITH NO ISSUES. NO NEED FOR HHC. HOME WITH INSTRUCTIONS Final Diagnosis INCONTINENCE WITH POSTOP RETENTION ELIEZER NOYOLA MD Apr 03, 2016 9:32 am
[2016-04-03 12:45] VITALS: BP 151/83
[2016-04-03] MEDS ORDERED: ONDANSETRON 4 MG (ZOFRAN) ORAL DISSOLVE TAB PO NR (13:00)
[2016-04-03] MEDS ORDERED: ONDANSETRON 8 MG (ZOFRAN) ORAL DISSOLVE TAB PO NR (14:00)
== END 2016-04-03 17:20 | disposition home or self-care (01) ==
LOC: SDC 06:03 → WS 11:19 → SDC 04-03 17:20
PROVIDERS: ATTEND Obstetrics & Gynecology
DX: N87.9 Dysplasia of cervix uteri, unspecified (principal); N81.10 Cystocele, unspecified; N39.3 Stress incontinence (female) (male); N32.81 Overactive bladder; N36.42 Intrinsic sphincter deficiency (ISD); N83.312 Acquired atrophy of left ovary; D25.1 Intramural leiomyoma of uterus; D25.2 Subserosal leiomyoma of uterus; N83.201 Unspecified ovarian cyst, right side
CPT/HCPCS: 86850; 86900; 86901; 88307; 94664; 96361; 96375; 96376

== ENCOUNTER 2016-04-10 09:18 | Emergency (ER) | payer BC ==
[~2016-04-10] VITALS: Ht 170.2 cm; Wt 98.4 kg
[~2016-04-10 09:18] MED LIST changes: +DOCU100C37 PO; +IBUP-1780 PO; +NITR-65 PO; +OXYC-465 PO
--- NOTE | 2016-04-10 09:25 | ED Cough/URI ---
General Stated Complaint: INCONTINENCE, CLOUDY/FOAMY URINE Source: patient Exam Limitations: no limitations History of Present Illness Time seen by provider: 10:18 Initial Comments Patient complains of cloudy foul-smelling urine and incontinence since last night. She recently had a hysterectomy with bladder tack. She was discharged on April 03. She has been on Macrobid until yesterday. She denies fevers nausea or vomiting. She denies abdominal pain. She was hospitalized in early March with urosepsis. She has been self cathetering since her surgery. She has an appointment with her urologist at 3 p.m. today. Allergies and Home Medications Allergies Coded Allergies: No Known Drug Allergies (Unverified , 05/28/10) Home Medications Amlodipine Besylate 10 Mg Tablet 10 MG PO DAILY (Reported) Docusate Sodium 100 Mg Capsule #60 100 MG PO BID Prescribed by: ROSIO LE on 04/02/16 0744 Estrogens Conjugated 30 Gm Cr 1 GM VG 1-2 TIMES PER WEEK (Reported) Hydrochlorothiazide 25 Mg Tablet 25 MG PO DAILY (Reported) Ibuprofen 800 Mg Tablet #60 800 MG PO Q6HR Prescribed by: ROSIO LE on 04/02/16 0744 Krill/Om-3/Dha/Epa/Phospho/Ast 1 Each Capsule 1 CAP PO BID (Reported) Nitrofurantoin Monohyd/M-Cryst 100 Mg Capsule 1 TAB PO BID (Reported) Oxycodone HCl/Acetaminophen 1 Each Tablet #60 1-2 TAB PO Q4H PRN PRN PAIN Prescribed by: ROSIO LE on 04/02/16 0744 Potassium Chloride 10 Meq Tablet.er 10 MEQ PO DAILY (Reported) Simvastatin 20 Mg Tablet 20 MG PO HS (Reported) Venlafaxine HCl 75 Mg Tab 75 MG PO BID (Reported) Constitutional: No fever Respiratory: no symptoms reported Cardiovascular: no symptoms reported Genitourinary: see HPI All Other Systems Reviewed Negative Unless Noted: Yes Past Qvtxzwk-Fxyatm-Brwapv Hx Patient Social History Type Used: Cigarettes Recent Foreign Travel: No Contact w/Someone Who Travel: No Recent Hopitalizations: Yes (sepsis from UTI on 03/07/16) Immunizations Up To Date Date of Influenza Vaccine: Dec 05, 2015 Seasonal Allergies Seasonal Allergies: No Surgeries HX Surgeries: Yes (BILATERAL CATARACTS) Surgeries: Appendectomy, Eye Surgery, Tubal Ligation Respiratory Hx Respiratory Disorders: No Cardiovascular Hx Cardiac Disorders: Yes Cardiac Disorders: Hypertension Neurological Hx Neurological Disorders: No Reproductive System Hx Reproductive Disorders: Yes (uterine prolapse) Genitourinary Hx Genitourinary Disorders: Yes (FREQUENT UTI) Genitourinary Disorders: UTI-Chronic Gastrointestinal Hx Gastrointestinal Disorders: No Musculoskeletal Hx Musculoskeletal Disorders: Yes (CHRONIC GENERALIZED JOINT PAIN ) Musculoskeletal Disorders: Arthritis Endocrine Hx Endocrine Disorders: No HEENT HX ENT Disorders: Yes (cataracts removed) HEENT Disorders: Cataract Cancer Hx Cancer: No Psychosocial Hx Psychiatric Problems: Yes Behavioral Health Disorders: Anxiety Integumentary HX Skin/Integumentary Disorder: No Blood Transfusions Hx Blood Disorders: No Adverse Reaction to a Blood Tr: No Reviewed Nursing Assessment Reviewed/Agree w Nursing PMH: Yes Family Medical History Family Medial History: Bone cancer 19 MOTHER Cardiovascular disease 19 MOTHER Diabetes mellitus 19 MOTHER Myocardial infarction 19 MOTHER Respiratory disorder 19 FATHER Physical Exam Vital Signs Vital Sign - Last 12Hours 04/10/16 09:30 Temp 97.3 Pulse 94 Resp 18 B/P 173/91 Pulse Ox 94 Capillary Refill : General Appearance: WD/WN no apparent distress HEENT: pharynx normal Neck: supple Respiratory: lungs clear normal breath sounds Cardiovascular: regular rate, rhythm no edema Gastrointestinal: non tender soft Neurologic/Psychiatric: alert normal mood/affect Skin: normal color warm/dry Progress/Results/Core Measures Results/Orders Lab Results Labs were reviewed Laboratory Tests Test 04/10/16 09:45 Range/Units Urine Bacteria MODERATE H /HPF Urine Bilirubin NEGATIVE NEGATIVE Urine Casts NONE /LPF Urine Clarity CLEAR Urine Color YELLOW Urine Crystals NONE /LPF Urine Culture Indicated YES Urine Glucose (UA) NEGATIVE NEGATIVE Urine Ketones NEGATIVE NEGATIVE Urine Leukocyte Esterase 3+ H NEGATIVE Urine Mucus NEGATIVE /LPF Urine Nitrite NEGATIVE NEGATIVE Urine Protein 2+ H NEGATIVE Urine RBC 2-5 H /HPF Urine RBC (Auto) 3+ H NEGATIVE Urine Specific [place] 1.005 L 1.016-1.022 Urine Squamous Epithelial Cells 2-5 /HPF Urine Urobilinogen NORMAL NORMAL MG/DL Urine WBC TNTC H /HPF Urine pH 7 5-9 My Orders Orders-STEPHANIE OCONNELL MD Ua Culture If Indicated (04/10/16 09:24) Urine Culture (04/10/16 09:45) Ceftriaxone Injection (Rocephin Injectio (04/10/16 10:30) Lidocaine 1% Injection (Xylocaine 1% Inj (04/10/16 10:30) Vital Signs/I&O Vital Sign - Last 12Hours 04/10/16 09:30 Temp 97.3 Pulse 94 Resp 18 B/P 173/91 Pulse Ox 94 Departure Communication Progress Notes Patient has no SIRS criteria Impression Impression: Primary Impression: Urinary tract infection Disposition: HOME, SELF-CARE Condition: Stable Departure-Patient Inst. Decision time for Depature: 10:20 Referrals: HARPER FAIRCHILD MD (PCP) Primary Care Physician ELIEZER NOYOLA MD (Family) Primary Care Physician Patient Instructions: Urinary Tract Infection, Adult (DC) Scripts Levofloxacin (Levaquin)750 Mg Vadnad158 Mg PO DAILY #5 TAB Prov:STEPHANIE OCONNELL MD 04/10/16 STEPHANIE OCONNELL MD Apr 10, 2016 09:25
--- OUTSIDE RECORDS SUMMARY | 2016-04-10 09:25 | XMS REPORT | Continuity of Care Document ---
Author Author [facility] Organization [facility] Address Unknown Phone Unavailable Care Team Providers Care Surveillance Technician Name Role Phone HARPER FAIRCHILD MD PCP Insurance Providers Payer Name Policy Number Subscriber Name Relationship [facility] [id number] Kiel Desai Self / Same As Patient [...] RX: Transmitted to Pharmacy ([facility]) Plan of Care/Instructions/FU: FU with Dr [...] - 99.5) 03/08/2016 1:36pm Temperature (Calculated Celsius) 36.88847 degrees C (36.4 - 37.5) 03/08/2016 8:25am [...] 6.00 inches 03/03/2016 12:30pm Height (Calculated Centimeters) 167.104891 cm 03/03/2016 12:30pm Weight (Pounds) 220 pounds 03/03/2016 3:07pm Weight (Ounces) 0.0 oz 03/03/2016 3:07pm Weight (Calculated Grams) 26560.322 gm 03/03/2016 3:07pm Weight (Calculated Kilograms) 99.121057 kilograms 03/03/2016 3:07pm Calculated BMI 35.5 03/03/2016 [...] 5-9 03/03/2016 10:35am 03/03/2016 11:10am Urine Specific Left Hand 1.010 * 1.016-1.022 03/03/2016 10:35am 2016 11:10am [...] Discharge/Depart Date Attending Provider Discharged Inpatient [facility] 03/03/16 11:10am 1:35pm HARPER FAIRCHILD MD Recent Diagnosis Sepsis secondary to UTI
[2016-04-10 09:54] LABS: BILIRUBIN,URINE NEGATIVE (NEGATIVE); KETONES,URINE NEGATIVE (NEGATIVE); LEUKOCYTE ESTERASE ,URINE 3+ (NEGATIVE); NITRITE,URINE NEGATIVE (NEGATIVE); PH,URINE 7 (5-9); PROTEIN,URINE 2+ (NEGATIVE); UROBILINOGEN,URINE NORMAL (NORMAL)
[2016-04-10 10:03] LABS: WBC,URINE TNTC /HPF
[2016-04-10] MEDS ORDERED: LEVO750T9 PO (10:21)
[2016-04-10] MEDS ORDERED: cefTRIAXone 1 GM (ROCEPHIN) VIAL IM ONE (10:30)
[2016-04-10] MEDS ORDERED: LIDOCAINE 1% INJ 20 ML (XYLOCAINE) VIAL INJ ONE (10:30)
[2016-04-10 10:34] VITALS: BP 173/91
== END 2016-04-10 10:48 | disposition home or self-care (01) ==
LOC: EDUNIT# 09:18 → ER 09:21
DX: N39.0 Urinary tract infection, site not specified (principal); Z90.710 Acquired absence of both cervix and uterus
CPT/HCPCS: 51702; 81000; 87077; 87088; 87186; 96372

== ENCOUNTER → 2016-05-20 | Outpatient (CLI) | payer BC ==
[~2016-05-20] MED LIST changes: +LEVO750T9 PO
--- OUTSIDE RECORDS SUMMARY | 2016-05-20 09:22 | XMS REPORT | Continuity of Care Document ---
Author Author [facility] Organization [facility] Address Unknown Phone Unavailable Care Team Providers Care Transformer Assembler Name Role Phone HARPER FAIRCHILD MD PCP Insurance Providers Payer Name Policy Number Subscriber Name Relationship [facility] [id number] Kiel Desai Self / Same As Patient [...] Converted or Re-Newed RX: Transmitted to Pharmacy ([facility]) Plan of Care/Instructions/FU: FU with Dr [...] - 99.5) 03/08/2016 1:36pm Temperature (Calculated Celsius) 36.18816 degrees C (36.4 - 37.5) 03/08/2016 8:25am [...] 6.00 inches 03/03/2016 12:30pm Height (Calculated Centimeters) 167.496222 cm 03/03/2016 12:30pm Weight (Pounds) 220 pounds 03/03/2016 3:07pm Weight (Ounces) 0.0 oz 03/03/2016 3:07pm Weight (Calculated Grams) 76170.322 gm 03/03/2016 3:07pm Weight (Calculated Kilograms) 99.329195 kilograms 03/03/2016 3:07pm Calculated BMI 35.5 03/03/2016 [...] 5-9 03/03/2016 10:35am 03/03/2016 11:10am Urine Specific [place] 1.010 * 1.016-1.022 03/03/2016 10:35am 2016 11:10am [...] Discharge/Depart Date Attending Provider Discharged Inpatient [facility] 03/03/16 11:10am 1:35pm HARPER FAIRCHILD MD Recent Diagnosis Sepsis secondary to UTI
--- NOTE | 2016-05-20 18:41 | Diagnostic Imaging Report ---
Bilateral screening mammogram. The current study was also evaluated with a Computer Aided Detection (CAD) system. INDICATION: Screening. No current complaints stated on the questionnaire. COMPARISON: 02/09/2015. FINDINGS: The breasts are composed of scattered fibroglandular densities. There are scattered benign-appearing calcifications seen. Allowing for technique and positional differences, no suspicious change is seen. IMPRESSION: No significant change. ACR BI-RADS Category 2: Benign findings. Result letter will be mailed to the patient. Note: At least 10% of breast cancer is not imaged by mammography. Dictated by: Dictated on workstation # [id number]
== END ==
LOC: RAD 09:18
PROVIDERS: ATTEND Family Medicine
DX: Z12.31 Encounter for screening mammogram for malignant neoplasm of breast (principal)
CPT/HCPCS: 77067

== ENCOUNTER → 2017-05-20 | Outpatient (CLI) | payer BC ==
[~2017-05-20] MED LIST changes: +BETH25TA PO; +GLUC-144 PO; +MULT-1029 PO; +VITA-189 PO
--- NOTE | 2017-05-20 19:08 | Diagnostic Imaging Report ---
INDICATION: Routine screening. COMPARISON: Comparison is made with prior exams from 05/20/2016 and 02/21/2015. The current study was also evaluated with a Computer Aided Detection (CAD) system. FINDINGS: Scattered fibroglandular densities are identified bilaterally. The parenchymal pattern is stable. There are benign-appearing intraparenchymal lymph nodes bilaterally. No spiculated mass or malignant appearing microcalcifications are seen. There are benign calcifications bilaterally. The axillae are unremarkable. IMPRESSION: No mammographic features suspicious for malignancy are identified. ACR BI-RADS Category 2: Benign findings. Result letter will be mailed to the patient. Note: At least 10% of breast cancer is not imaged by mammography. Dictated by: Dictated on workstation # [id number]
== END ==
LOC: RAD 09:48
PROVIDERS: ATTEND Family Medicine
DX: Z12.31 Encounter for screening mammogram for malignant neoplasm of breast (principal)
CPT/HCPCS: 77067